=== PATIENT | male | born 1955 | race Caucasian/White ===

== ENCOUNTER 2017-05-18 17:32 | Inpatient (IN) | payer MEDICAID ==
[~2017-05-18] VITALS: Ht 172.7 cm; Wt 88.0 kg
[2017-05-18] MEDS ORDERED: Famotidine 20 MG/ 2ML VIAL IVP ONE (17:45)
[2017-05-18] MEDS ORDERED: Morphine Sulfate 4mg/ml Inj IVP ONE (17:45)
--- NOTE | 2017-05-18 17:57 | Emergency Room Report ---
History of Present Illness General Chief Complaint: Abdominal Pain Source: Patient Present Illness HPI The patient is a 61-year-old male who presented after increased abdominal pain. Patient had sudden onset of abdominal pain worse on the upper abdomen. This had the sharp component as well as intermittent cramping. Patient had not been vomiting. He denied any fever. He had not been taking any alcohol recently. He reported having flatus yesterday. The per EMS he was having some hematemesis. Allergies: Coded Allergies: No Known Allergies (Unverified , 05/18/17) Patient History Past Medical History: see triage record Reviewed Nursing Documentation: PMH: Agreed, PSxH: Agreed Nursing Documentation-PMH Past Medical History: No Stated History Review of Systems All Other Systems: negative except mentioned in HPI Physical Exam Vital Signs Date Time Temp Pulse Resp B/P Pulse Ox O2 Delivery O2 Flow Rate FiO2 05/18/17 17:33 97.9 86 16 150/90 98 Room Air Sp02 EP Interpretation: reviewed, normal General Appearance: normal inspection, well appearing, no apparent distress, alert, GCS 15 Head: atraumatic ENT: normal ENT inspection, hearing grossly normal, normal voice Neck: normal inspection, full range of motion, supple, no bony tend Respiratory: normal inspection, lungs clear, normal breath sounds, no respiratory distress, no retraction, no wheezing Cardiovascular #1: regular rate, rhythm, no edema Gastrointestinal: non tender, soft, no guarding, no hernia, tenderness - epigastric Genitourinary: no CVA tenderness Musculoskeletal: normal inspection, back normal, normal range of motion Neurologic: normal inspection, alert, responsive, speech normal Psychiatric: normal inspection, judgement/insight normal, mood/affect normal Skin: normal inspection, normal color, no rash Medical Decision Making Diagnostic Impression: Primary Impression: Abdominal pain Additional Impression: Bowel obstruction ER Course Patient presented for abdominal pain. Differential diagnoses included ischemic bowel, appendicitis, perforated viscus, abdominal aortic aneurysm, inferior myocardial infarction, viral gastroenteritis Because of complexity of patient's case laboratory testing and imaging studies were ordered. Laboratory testing was ordered. Patient was given IV antibiotics as well as IV fluids and pain medications. Dr. Betancur was contacted for surgical consult due to acute abdominal pain. NG tube was placed. Patient was given I IV acid blockers.As per surgical consult it pain medication was subsequently held due to the effect on GI function. Dr. Rico Ramos was contacted for inpatient management. Labs Test 05/18/17 18:00 White Blood Count 16.3 K/UL (4.8-10.8) Red Blood Count 5.55 M/UL (4.70-6.10) Hemoglobin 17.3 G/DL (14.2-18.0) Hematocrit 51.0 % (42.0-52.0) Mean Corpuscular Volume 92 FL (80-99) Mean Corpuscular Hemoglobin 31.2 PG (27.0-31.0) Mean Corpuscular Hemoglobin Concent 33.9 G/DL (32.0-36.0) Red Cell Distribution Width 12.4 % (11.6-14.8) Platelet Count 410 K/UL (150-450) Mean Platelet Volume 6.4 FL (6.5-10.1) Neutrophils (%) (Auto) 85.6 % (45.0-75.0) Lymphocytes (%) (Auto) 8.2 % (20.0-45.0) Monocytes (%) (Auto) 5.7 % (1.0-10.0) Eosinophils (%) (Auto) 0.1 % (0.0-3.0) Basophils (%) (Auto) 0.4 % (0.0-2.0) Prothrombin Time 11.6 SEC (9.30-11.50) Prothromb Time International Ratio 1.1 (0.9-1.1) Activated Partial Thromboplast Time 40 SEC (23-33) Sodium Level 135 mEQ/L (135-145) Potassium Level 3.9 mEQ/L (3.4-4.9) Chloride Level 86 mEQ/L (98-107) Carbon Dioxide Level 23 mEQ/L (20-30) Anion Gap 26 (5-15) Blood Urea Nitrogen 31 mg/dL (7-23) Creatinine 2.5 mg/dL (0.7-1.2) Estimat Glomerular Filtration Rate 26.5 mL/min (>60) Glucose Level 172 mg/dL (74-106) Calcium Level 9.9 mg/dL (8.6-10.2) Total Bilirubin 0.9 mg/dL (0.0-1.2) Aspartate Amino Transf (AST/SGOT) 13 U/L (5-40) Alanine Aminotransferase (ALT/SGPT) 8 U/L (3-41) Alkaline Phosphatase 107 U/L (40-129) Troponin I < 0.30 ng/mL (<=0.30) Total Protein 7.9 g/dL (6.6-8.7) Albumin 3.7 g/dL (3.5-5.2) Globulin 4.2 g/dL Albumin/Globulin Ratio 0.8 (1.0-2.7) Lipase 9 U/L (< 60) EKG Diagnostic Results Rate: normal - 93 Rhythm: NSR ST Segments: no acute changes Rhythm Strip Diag. Results EP Interpretation: yes Rhythm: NSR, no PVC's, no ectopy Last Vital Signs Date Time Temp Pulse Resp B/P Pulse Ox O2 Delivery O2 Flow Rate FiO2 05/18/17 17:33 97.9 86 16 150/90 98 Room Air Status: unchanged Disposition: ADMITTED INPATIENT Condition: Serious Toan Dinero May 18, 2017 17:57
[2017-05-18 18:10] VITALS: BP 150/90
[2017-05-18 18:36] LABS: MEAN CORPUSCULAR HEMOGLOBIN 31.2 PG (27.0-31.0); MEAN CORPUSCULAR HGB CONC 33.9 G/DL (32.0-36.0); MEAN CORPUSCULAR VOLUME 92 FL (80-99); MEAN PLATELET VOLUME 6.4 FL (6.5-10.1); PLATELET COUNT 410 K/UL (150-450); RED BLOOD COUNT 5.55 M/UL (4.70-6.10); RED CELL DISTRIBUTION WIDTH 12.4 % (11.6-14.8); WHITE BLOOD COUNT 16.3 K/UL (4.8-10.8)
[2017-05-18 18:37] LABS: BASOPHILS % (AUTO) 0.4 % (0.0-2.0); EOSINOPHILS % (AUTO) 0.1 % (0.0-3.0); LYMPHOCYTES % (AUTO) 8.2 % (20.0-45.0); MONOCYTES % (AUTO) 5.7 % (1.0-10.0); NEUTROPHILS % (AUTO) 85.6 % (45.0-75.0)
[2017-05-18 18:46] LABS: INR 1.1 (0.9-1.1); PROTHROMBIN TIME 11.6 SEC (9.30-11.50)
[2017-05-18 18:52] LABS: TROPONIN I < 0.30 ng/mL (<=0.30)
[2017-05-18 19:11] LABS: ALBUMIN/GLOBULIN RATIO 0.8 (1.0-2.7); CALCIUM 9.9 mg/dL (8.6-10.2); CREATININE 2.5 mg/dL (0.7-1.2); GLOMERULAR FILTRATION RATE 26.5 mL/min (>60); POTASSIUM 3.9 mEQ/L (3.4-4.9); TOTAL PROTEIN 7.9 g/dL (6.6-8.7)
[2017-05-18 20:00] VITALS: BP 158/94
[2017-05-18] MEDS ORDERED: Ampicillin/Sulbactam Sod 3 GM in NS 110 ML IVPB ONE (20:30)
[2017-05-18] MEDS ORDERED: Unasyn 3gm Inj ONE (20:47)
[2017-05-18 23:00] VITALS: BP 165/92
[2017-05-18] MEDS ORDERED: NKM (23:10)
--- NOTE | 2017-05-18 23:15 | Consultation ---
DATE OF CONSULTATION: 05/18/2017 CONSULTING PHYSICIAN: Sean Betancur M.D. REQUESTING PHYSICIAN: ER physician. REASON FOR CONSULTATION: Abdominal pain. HISTORY OF PRESENT ILLNESS: This is a 61-year-old male who presented to emergency room complaining of lot of abdominal pain since 05/15/2017. He states the pain is pain is at the lower abdomen and apparently he had crampy pain. He stated that since 05/16/2017 he had been vomiting. He had diarrhea on 05/16/2017 after that he started abdominal pain but since then he has been passing gas, flatus. He claims that passing flatus causes pain. He denies any previous history of similar pain. He denies any fever, cough, dysuria, or frequency. PAST MEDICAL HISTORY: He denies allergies, asthma, diabetes, hypertension, cardiac and renal diseases. PAST SURGICAL HISTORY: Include the left retinal detachment. MEDICATIONS: None. SOCIAL HISTORY: The patient is a 61-year-old male, who is single without children. He claims that he quit smoking five months ago and he quit drinking about 6 to 7 years ago. He denies any drugs. REVIEW OF SYSTEMS: Noncontributory. PHYSICAL EXAMINATION: GENERAL: The patient appeared to be a well-developed, well-nourished, 61-year-old male, lying on the gurney, complaining of abdominal pain. He claimed that the movement makes the pain worse. HEENT: Head is normocephalic and atraumatic. Eyes, pupils are equal, round, and reactive to light. Mouth was clear. NECK: There is no palpable thyromegaly or adenopathy. CHEST: Clear to auscultation and percussion. HEART: No gallop or murmur. S1 and S2 are within normal limits. ABDOMEN: Mildly distended, but soft. He has tenderness at the lower abdomen. This patient had periumbilical hernia. There is no rigidity. There is no palpable organomegaly. Bowel sounds are present. GENITOURINARY: Genital is normal. He is free of hernia. EXTREMITIES: Within normal limits. LABORATORY AND DIAGNOSTIC DATA: CBC has shown a leukocytosis with a left shift. Chemistry has shown elevated creatinine and which is about 2.4 with a BUN of 30. CAT scan of the abdomen has shown a dilated loop of small bowel as well as dilated stomach and the radiologist felt presence of small bowel obstruction. ASSESSMENT: Rule out small bowel obstruction. PLAN: The patient has been complaining of pain and vomiting but he has been passing gas. So even if he has bowel obstruction is not complete, it has to be partial, of course it has to be considered that the patient did not have any previous surgery so chances of obstruction due to the adhesion is very small. In that case, if there is any bowel obstruction it has to be either due to the volvulus, internal hernia, or ischemia. I am not sure about the diagnosis and the etiology so the patient requires to be observed. He needs to be NPO, NG tube suctioning, intravenous fluids, and I took the liberty of ordering a Gastrografin followthrough, small bowel followthrough to be performed in the morning. Sean Betancur M.D. DR: Maria Eugenia JOB#: [id number] CC:
[2017-05-19] VITALS (11 sets, daily range): BP systolic 134–165; BP diastolic 64–150
[2017-05-19] MEDS: NS w/KCl 20mEq 1,000 ML IV SCH ×3 (02:26→18:00)
[2017-05-19] MEDS ORDERED: Zosyn 3.375gm inj ONE ×3 (05:33→22:57)
[2017-05-19] MEDS: Piperacillin/Tazobactam 3.375 GM in NS 110 ML IVPB SCH ×3 (05:47→23:15)
[2017-05-19 07:47] LABS: BASOPHILS % (AUTO) 0.9 % (0.0-2.0); EOSINOPHILS % (AUTO) 0.8 % (0.0-3.0); LYMPHOCYTES % (AUTO) 15.5 % (20.0-45.0); MEAN CORPUSCULAR HEMOGLOBIN 30.9 PG (27.0-31.0); MEAN CORPUSCULAR HGB CONC 33.4 G/DL (32.0-36.0); MEAN CORPUSCULAR VOLUME 92 FL (80-99); MEAN PLATELET VOLUME 7.1 FL (6.5-10.1); MONOCYTES % (AUTO) 7.9 % (1.0-10.0); PLATELET COUNT 411 K/UL (150-450); RED BLOOD COUNT 5.15 M/UL (4.70-6.10); RED CELL DISTRIBUTION WIDTH 12.2 % (11.6-14.8); WHITE BLOOD COUNT 6.2 K/UL (4.8-10.8)
[2017-05-19 08:06] LABS: CALCIUM 8.7 mg/dL (8.6-10.2); CREATININE 2.9 mg/dL (0.7-1.2); GLOMERULAR FILTRATION RATE 22.3 mL/min (>60); POTASSIUM 3.9 mEQ/L (3.4-4.9)
[2017-05-19 08:11] LABS: BILIRUBIN,DIRECT 0.2 mg/dL (0.1-0.3); THYROID STIMULATING HORMONE 0.789 uIU/mL (0.300-4.500); TOTAL PROTEIN 6.2 g/dL (6.6-8.7)
[2017-05-19] MEDS ORDERED: Famotidine 20 MG/ 2ML VIAL IVP SCH (09:00)
[2017-05-19] MEDS ORDERED: Midazolam 2mg/2ml Inj ONE ×2 (09:00→19:00)
--- NOTE | 2017-05-19 10:31 | Diagnostic Imaging Report ---
Indication: Abdominal pain Technique: Continuous helical transaxial imaging of the abdomen and pelvis was obtained from the lung bases to the pubic symphysis. No intravenous contrast was administered. Coronal 2-D reformats were also obtained. Total Dose length Product (DLP): [address] Dose Index Volume (CTDIvol): 17 mGy Comparison: none Findings: There is moderate distention of proximal small bowel and the stomach. The precise transition is not identified but suspected to be within the lower abdomen upper pelvis midline in location. There are multiple nondistended loops of small bowel in the pelvis including the terminal ileum. Findings consistent with small bowel obstruction. Evaluation limited by the absence of oral and intravenous contrast. There is no pneumatosis or free air identified. There is a low-density 2 cm focus in the posterior right lobe of the liver. There is a low-density 2.5 x 3.5 CM left adrenal mass. Tiny nonobstructive stones noted within the left kidney. There is no hydronephrosis. Arterial vascular calcifications are noted. Diverticula demonstrated in the colon. Small amount of ascites noted in the pelvis. There is thickening of the urinary bladder wall. The appendix is normal. Gallbladder sludge suspected. Mild left basal atelectasis is present. There is narrowing of intervertebral discs and accompanying endplate osteophyte formation. Hypertrophied facet joints also demonstrated.. Scoliosis also present with the lumbar spine convex to the left. Impression: Evaluation limited by the absence of intravenous and oral contrast. Evidence of a small bowel obstruction likely in the distal jejunum or proximal ileum. Transition is suspected within the midline below the umbilicus. Mild ascites. Trace pericardial effusion Hiatal hernia Nonobstructive stones in the left kidney. Atherosclerotic vascular disease Gallbladder sludge versus stones. Low-density lesion in the liver nonspecific. 2.5 x 3.5 cm left adrenal gland mass. Consider MR for further evaluation. Spondylosis. Thickening of the urinary bladder wall. Cystitis suspected. Please correlate clinically. Diverticulosis of the colon. Normal appendix Dr. Dee has communicated the preliminary results to the Emergency Department. There are no significant discrepancies. The CT scanner at [facility] is accredited by the [employer] and the scans are performed using dose optimization techniques as appropriate to a performed exam including Automatic Exposure control.
--- NOTE | 2017-05-19 11:19 | Diagnostic Imaging Report ---
Indication: Dyspnea Comparison: None A single view chest radiograph was obtained. Findings: Cardiomediastinal appearance is within normal limits for age. Pulmonary vascularity is appropriate. The diaphragmatic contour is smooth and costophrenic angles are sharp. No pleural effusions are identified. The bones are osteopenic. There is a scoliosis of the thoracic spine. Impression: No acute findings
[2017-05-19 12:27] LABS: APPEARANCE,URINE CLEAR; KETONES,URINE 1+ (NEGATIVE); LEUKOCYTE ESTERASE ,URINE 1+ (NEGATIVE); NITRITE,URINE NEGATIVE (NEGATIVE); PH,URINE 5 (4.5-8.0); PROTEIN,URINE 2+ (NEGATIVE); UROBILINOGEN,URINE NORMAL MG/DL (0.0-1.0)
[2017-05-19 12:34] LABS: AMORPHOUS SEDIMENT,UR FEW /LPF; BACTERIA,URINE FEW /HPF; SQUAMOUS EPITHELIAL CELL,UR OCCASIONAL /LPF (NONE/OCC)
--- NOTE | 2017-05-19 13:33 | General Surgery Progress Note ---
General Surgery-Progress Note Subjective Symptoms: pain same Objective Last 24 Hour Vital Signs Date Time Temp Pulse Resp B/P Pulse Ox O2 Delivery O2 Flow Rate FiO2 05/19/17 08:00 97.7 95 20 136/84 96 Room Air 05/19/17 04:05 81 163/65 05/19/17 04:00 97.3 98 24 165/150 97 Room Air 05/19/17 04:00 96 05/19/17 02:30 98.1 81 163/65 05/18/17 23:00 97.3 94 24 165/92 100 Room Air 05/18/17 20:00 89 19 158/94 99 Room Air 05/18/17 18:40 97.8 05/18/17 18:10 97.9 77 16 150/90 98 Room Air 05/18/17 17:33 97.9 86 16 150/90 98 Room Air I&O Intake and Output 05/18/17 05/19/17 19:00 07:00 Intake Total 714.5 ml Output Total 620 ml Balance 94.5 ml Intake IV Total 714.5 ml Output Gastric Drainage Total 620 ml # Voids 1 Respiratory: clear Abdomen: soft, distended, tenderness, present bowel sounds Extremities: no tenderness Laboratory Tests Test 05/18/17 18:00 05/19/17 07:15 05/19/17 09:20 White Blood Count 16.3 K/UL (4.8-10.8) H 6.2 K/UL (4.8-10.8) # Red Blood Count 5.55 M/UL (4.70-6.10) 5.15 M/UL (4.70-6.10) Hemoglobin 17.3 G/DL (14.2-18.0) 15.9 G/DL (14.2-18.0) Hematocrit 51.0 % (42.0-52.0) 47.6 % (42.0-52.0) Mean Corpuscular Volume 92 FL (80-99) 92 FL (80-99) Mean Corpuscular Hemoglobin 31.2 PG (27.0-31.0) H 30.9 PG (27.0-31.0) Mean Corpuscular Hemoglobin Concent 33.9 G/DL (32.0-36.0) 33.4 G/DL (32.0-36.0) Red Cell Distribution Width 12.4 % (11.6-14.8) 12.2 % (11.6-14.8) Platelet Count 410 K/UL (150-450) 411 K/UL (150-450) Mean Platelet Volume 6.4 FL (6.5-10.1) L 7.1 FL (6.5-10.1) Neutrophils (%) (Auto) 85.6 % (45.0-75.0) H 75.0 % (45.0-75.0) Lymphocytes (%) (Auto) 8.2 % (20.0-45.0) L 15.5 % (20.0-45.0) L Monocytes (%) (Auto) 5.7 % (1.0-10.0) 7.9 % (1.0-10.0) Eosinophils (%) (Auto) 0.1 % (0.0-3.0) 0.8 % (0.0-3.0) Basophils (%) (Auto) 0.4 % (0.0-2.0) 0.9 % (0.0-2.0) Prothrombin Time 11.6 SEC (9.30-11.50) H Prothromb Time International Ratio 1.1 (0.9-1.1) Activated Partial Thromboplast Time 40 SEC (23-33) H Sodium Level 135 mEQ/L (135-145) 133 mEQ/L (135-145) L Potassium Level 3.9 mEQ/L (3.4-4.9) 3.9 mEQ/L (3.4-4.9) Chloride Level 86 mEQ/L (98-107) L 91 mEQ/L (98-107) L Carbon Dioxide Level 23 mEQ/L (20-30) 25 mEQ/L (20-30) Anion Gap 26 (5-15) H 17 (5-15) H Blood Urea Nitrogen 31 mg/dL (7-23) H 40 mg/dL (7-23) H Creatinine 2.5 mg/dL (0.7-1.2) H 2.9 mg/dL (0.7-1.2) H Estimat Glomerular Filtration Rate 26.5 mL/min (>60) 22.3 mL/min (>60) Glucose Level 172 mg/dL (74-106) H 134 mg/dL (74-106) H Calcium Level 9.9 mg/dL (8.6-10.2) 8.7 mg/dL (8.6-10.2) Total Bilirubin 0.9 mg/dL (0.0-1.2) 0.7 mg/dL (0.0-1.2) Aspartate Amino Transf (AST/SGOT) 13 U/L (5-40) 11 U/L (5-40) Alanine Aminotransferase (ALT/SGPT) 8 U/L (3-41) 7 U/L (3-41) Alkaline Phosphatase 107 U/L (40-129) 85 U/L (40-129) Troponin I < 0.30 ng/mL (<=0.30) Total Protein 7.9 g/dL (6.6-8.7) 6.2 g/dL (6.6-8.7) L Albumin 3.7 g/dL (3.5-5.2) 3.4 g/dL (3.5-5.2) L Globulin 4.2 g/dL Albumin/Globulin Ratio 0.8 (1.0-2.7) L Lipase 9 U/L (< 60) Direct Bilirubin 0.2 mg/dL (0.1-0.3) Thyroid Stimulating Hormone (TSH) 0.789 uIU/mL (0.300-4.500) Urine Color Yellow Urine Appearance Clear Urine pH 5 (4.5-8.0) Urine Specific [place] 1.015 (1.005-1.035) Urine Protein 2+ (NEGATIVE) H Urine Glucose (UA) Negative (NEGATIVE) Urine Ketones 1+ (NEGATIVE) H Urine Occult Blood 1+ (NEGATIVE) H Urine Nitrite Negative (NEGATIVE) Urine Bilirubin Negative (NEGATIVE) Urine Urobilinogen Normal MG/DL (0.0-1.0) Urine Leukocyte Esterase 1+ (NEGATIVE) H Urine RBC 2-4 /HPF (0 - 0) H Urine WBC 5-10 /HPF (0 - 0) H Urine Squamous Epithelial Cells Occasional /LPF Urine Amorphous Sediment Few /LPF (NONE) H Urine Bacteria Few /HPF (NONE) Assessment Additional Comments R/O SBO Plan Additional Comments The patient is very tender gastrografin is not progressing. If there is no improvement in the next few hours he will undergo EX Lap. Risks & benefits were explained to patient PARKERCYNTHIA BEACHRAVI May 19, 2017 13:33
--- NOTE | 2017-05-19 13:43 | Anethesia Preoperative Eval ---
Anesthesia Pre-op PMH/ROS General Date of Evaluation: May 19, 2017 Time of Evaluation: 13:39 Anesthesiologist: Erendira ASA Score: ASA 2 Mallampati Score Class I : Soft palate, uvula, fauces, pillars visible Class II: Soft palate, uvula, fauces visible Class III: Soft palate, base of uvula visible Class IV: Only hard plate visible Mallampati Classification: Class III Surgeon: Pipe Diagnosis: Small bowel obstruction Surgical Procedure: Ex laparotomy Anesthesia History: none Social History: smoking - h/o Family History: no anesthesia problems Allergies: Coded Allergies: No Known Allergies (Unverified , 05/18/17) Medications: see eMAR Past Medical History Cardiovascular: Reports: HTN, Denies: CAD, AL, arrhythmia, other, valve dz Pulmonary: Denies: COPD, GUS, asthma, other Gastrointestinal/Genitourinary: Reports: GERD, Denies: CRI, ESRD, other Neurologic/Psychiatric: Reports: depression/anxiety, Denies: CVA, TIA, dementia, other Endocrine: Denies: DM, hypothyroidism, other, steroids HEENT: Denies: [place] (L), [place] (R), cataract (L), cataract (R), glaucoma, other Hematology/Immune: Denies: DVT, anemia, bleeding disorder, other Musculoskeletal/Integumentary: Reports: DJD, Denies: DDD, OA, RA, edema, other Other: other - malnourished PMH Narrative: admitted for acute abdominal pain PSxH Narrative: see chart Anesthesia Pre-op Phys. Exam Physician Exam Last Vital Signs Date Time Temp Pulse Resp B/P Pulse Ox O2 Delivery O2 Flow Rate FiO2 05/19/17 08:00 97.7 95 20 136/84 96 Room Air Constitutional: other - slightly obtunded Neurologic: other - unable to obtaine Cardiovascular: RRR, no M/R/G Respiratory: CTA Gastrointestinal: other - slightly distended tender on palpation Airway Exam Mallampati Score: Class III MO: limited Neck: stiff ROM: limited Teeth: missing, broken Dentures: no lower, no upper Anesthesia Pre-op A/P Labs Hematology Test 05/18/17 18:00 05/19/17 07:15 White Blood Count 16.3 K/UL (4.8-10.8) H 6.2 K/UL (4.8-10.8) # Red Blood Count 5.55 M/UL (4.70-6.10) 5.15 M/UL (4.70-6.10) Hemoglobin 17.3 G/DL (14.2-18.0) 15.9 G/DL (14.2-18.0) Hematocrit 51.0 % (42.0-52.0) 47.6 % (42.0-52.0) Mean Corpuscular Volume 92 FL (80-99) 92 FL (80-99) Mean Corpuscular Hemoglobin 31.2 PG (27.0-31.0) H 30.9 PG (27.0-31.0) Mean Corpuscular Hemoglobin Concent 33.9 G/DL (32.0-36.0) 33.4 G/DL (32.0-36.0) Red Cell Distribution Width 12.4 % (11.6-14.8) 12.2 % (11.6-14.8) Platelet Count 410 K/UL (150-450) 411 K/UL (150-450) Mean Platelet Volume 6.4 FL (6.5-10.1) L 7.1 FL (6.5-10.1) Neutrophils (%) (Auto) 85.6 % (45.0-75.0) H 75.0 % (45.0-75.0) Lymphocytes (%) (Auto) 8.2 % (20.0-45.0) L 15.5 % (20.0-45.0) L Monocytes (%) (Auto) 5.7 % (1.0-10.0) 7.9 % (1.0-10.0) Eosinophils (%) (Auto) 0.1 % (0.0-3.0) 0.8 % (0.0-3.0) Basophils (%) (Auto) 0.4 % (0.0-2.0) 0.9 % (0.0-2.0) Coagulation Test 05/18/17 18:00 Prothrombin Time 11.6 SEC (9.30-11.50) H Prothromb Time International Ratio 1.1 (0.9-1.1) Activated Partial Thromboplast Time 40 SEC (23-33) H Chemistry Test 05/18/17 18:00 05/19/17 07:15 Sodium Level 135 mEQ/L (135-145) 133 mEQ/L (135-145) L Potassium Level 3.9 mEQ/L (3.4-4.9) 3.9 mEQ/L (3.4-4.9) Chloride Level 86 mEQ/L (98-107) L 91 mEQ/L (98-107) L Carbon Dioxide Level 23 mEQ/L (20-30) 25 mEQ/L (20-30) Anion Gap 26 (5-15) H 17 (5-15) H Blood Urea Nitrogen 31 mg/dL (7-23) H 40 mg/dL (7-23) H Creatinine 2.5 mg/dL (0.7-1.2) H 2.9 mg/dL (0.7-1.2) H Estimat Glomerular Filtration Rate 26.5 mL/min (>60) 22.3 mL/min (>60) Glucose Level 172 mg/dL (74-106) H 134 mg/dL (74-106) H Calcium Level 9.9 mg/dL (8.6-10.2) 8.7 mg/dL (8.6-10.2) Total Bilirubin 0.9 mg/dL (0.0-1.2) 0.7 mg/dL (0.0-1.2) Aspartate Amino Transf (AST/SGOT) 13 U/L (5-40) 11 U/L (5-40) Alanine Aminotransferase (ALT/SGPT) 8 U/L (3-41) 7 U/L (3-41) Alkaline Phosphatase 107 U/L (40-129) 85 U/L (40-129) Troponin I < 0.30 ng/mL (<=0.30) Total Protein 7.9 g/dL (6.6-8.7) 6.2 g/dL (6.6-8.7) L Albumin 3.7 g/dL (3.5-5.2) 3.4 g/dL (3.5-5.2) L Globulin 4.2 g/dL Albumin/Globulin Ratio 0.8 (1.0-2.7) L Lipase 9 U/L (< 60) Direct Bilirubin 0.2 mg/dL (0.1-0.3) Thyroid Stimulating Hormone (TSH) 0.789 uIU/mL (0.300-4.500) Studies Pre-op Studies: EKG - NSR Risk Assessment & Plan Assessment: ASA 2 E Plan: GA with ETT Pre-Antibiotics Drug: as scheduled AYALA SOTELO M.D. May 19, 2017 13:43
--- NOTE | 2017-05-19 15:17 | Diagnostic Imaging Report ---
Indication: Small bowel obstruction. Abdominal pain Comparison: CT 05/18/17 Findings: Oral Gastrografin water-soluble contrast was given and small bowel series was performed. Stomach is distended. Multiple proximal small bowel loops are distended with contrast. At 2 hours there is no further propagation of contrast material beyond the dilated loops in the mid abdomen. At 4 hours there is no change. Impression: High-grade small bowel obstruction involving mid jejunum.
--- NOTE | 2017-05-19 16:30 | History and Physical Report ---
DATE OF ADMISSION: 05/18/2017 REASON FOR ADMISSION: Partial small bowel obstruction and renal failure. HISTORY OF PRESENT ILLNESS: This is a 61-year-old white male has no prior history of abdominal surgery or illness. He developed sudden onset abdominal pain with cramping and anorexia for the last 2 to 3 days. He has had very poor urine output and states he has not been able to the eat. He did pass some gas. He has not had fevers or chills or other constitutional symptoms. PAST MEDICAL HISTORY: Otherwise unremarkable. ALLERGIES: None. SOCIAL HISTORY: Denies smoking, alcohol, or substance abuse. FAMILY HISTORY: Noncontributory. PHYSICAL EXAMINATION: VITAL SIGNS: Afebrile, blood pressure 150/90, pulse 86, respiratory rate 16. HEENT: Conjunctivae are pink. Sclerae are anicteric. Oropharynx clear. Mucous membranes dry. NECK: Supple. Jugular venous pressure normal. LUNGS: Clear. CARDIAC: Regular rhythm and rate. Normal S1, S2. No murmur. ABDOMEN: Slightly distended, but soft. No guarding. There is mid epigastric tenderness. No Raymundo sign. EXTREMITIES: Good pulses. No edema. NEUROLOGIC: Nonfocal. LABORATORY AND DIAGNOSTIC DATA: White count 16, hemoglobin 17. INR normal. Sodium 135, potassium 3.9, chloride 86, and bicarbonate 23, BUN 31, and creatinine 2.5. Albumin 3.7. EKG sinus rhythm with no abnormalities. LABORATORY DATA: CAT scan of the abdomen and pelvis is notable for small bowel obstruction in the distal jejunum or proximal ileum, mild ascites, nonobstructive left kidney stone, hiatal hernia, gallbladder sludge versus stones, left adrenal mass, cystitis, diverticulosis. IMPRESSION: 1. Partial small bowel obstruction, 2. Possible cystitis. 3. Leukocytosis. 4. Sepsis. 5. Acute renal failure due to acute tubular necrosis. 6. Hypovolemia. 7. Dehydration. 8. Hyperglycemia. 9. Hypochloremia. PLAN: 1. NPO. 2. Surgical evaluation. 3. IV fluid hydration. 4. Empiric antibiotics. 5. Further imaging studies to assess for source of obstruction will follow. 6. Renal ultrasound will be considered. 7. Deep venous thrombosis prophylaxis. Rico Ramos M.D. DR: Rick JOB#: [id number] CC:
[2017-05-19] MEDS ORDERED: Propofol 10mg/ml 20ml IV ONE (19:00)
[2017-05-19] MEDS ORDERED: Lidocaine 1% MPF 10mg/ml 5ml ONE (19:00)
[2017-05-19] MEDS ORDERED: Zemuron 50mg/5ml Inj IV ONE (19:00)
[2017-05-19] MEDS ORDERED: Glycopyrrolate 0.2mg/ml 1ml Vial ONE (19:00)
[2017-05-19] MEDS ORDERED: Dexamethasone 4mg/ml vial ONE (19:00)
[2017-05-19] MEDS ORDERED: fentaNYL 100 mcg/2 mL IV ONE (19:00)
[2017-05-19] MEDS ORDERED: Neostigmine 1mg/ml 10ml Inj ONE (19:00)
[2017-05-19] MEDS ORDERED: Metoclopramide 10mg/2ml Inj ONE (19:00)
[2017-05-19] MEDS ORDERED: LR 1000ml ONE (19:00)
--- NOTE | 2017-05-19 19:04 | Pre-Procedure Note/Attestation ---
Pre-Procedure Note/Attestation Complete Prior to Procedure Planned Procedure: not applicable Procedure Narrative: Exploratory Laparotomy Indications for Procedure Pre-Operative Diagnosis: Small Bowel obstruction Attestation I attest that I discussed the nature of the procedure; its benefits; risks and complications; and alternatives (and the risks and benefits of such alternatives ), prior to the procedure, with the patient (or the patient's legal traveling sales representative). I attest that, if there was a reasonable possibility of needing a blood transfusion, the patient (or the patient's legal traveling sales representative) was given the [facility] standardized written summary, pursuant to the [place] [place] Blood Safety Act ([place] Health and Safety Code # 1645, as amended). I attest that I re-evaluated the patient just prior to the surgery and that there has been no change in the patient's H&P, except as documented below: FRED MILES May 19, 2017 19:04
[2017-05-19] MEDS ORDERED: LR 1000ml 1,000 ML IVLG SCH (19:40)
--- NOTE | 2017-05-19 19:42 | Immediate Post-Op Evaluation ---
Immediate Post-Op Evalulation Immediate Post-Op Evalulation Procedure: Exploratory laparotomy Date of Evaluation: May 19, 2017 Time of Evaluation: 22:26 IV Fluids: 2.6L Blood Products: 0 Estimated Blood Loss: 150 Urinary Output: 300 Blood Pressure Systolic: 151 Blood Pressure Diastolic: 77 Pulse Rate: 79 Respiratory Rate: 16 O2 Sat by Pulse Oximetry: 99 Temperature (Fahrenheit): 97.7 Pain Score (1-10): 0 Nausea: No Vomiting: No Complications 0 Patient Status: awake, reacts, patent, none Hydration Status: adequate Drug: Zosyn on floor Given Within 1 Hr of Incision: Yes KARL GALAN M.D. May 19, 2017 19:42
[2017-05-19] MEDS ORDERED: Metoclopramide 10mg/2ml Inj IVP PRN ×2 (19:45→22:00)
[2017-05-19] MEDS ORDERED: LORazepam Inj 2mg/ml 1ml IV PRN (19:45)
[2017-05-19] MEDS ORDERED: Hydromorphone 0.5mg/0.5ml inj IVP PRN ×2 (19:45→22:00)
[2017-05-19] MEDS ORDERED: Midazolam 2mg/2ml Inj IVP PRN (19:45)
[2017-05-19] MEDS ORDERED: DiphenhydrAMINE 50mg/ml Inj IVP PRN (19:45)
[2017-05-19] MEDS ORDERED: fentaNYL 100 mcg/2 mL IV PRN (19:45)
[2017-05-19] MEDS ORDERED: NS Irrig 1000ml IRRIG ONE (19:54)
[2017-05-19] MEDS ORDERED: Bacitracin Irrig 1000ml IRRIG ONE (19:55)
[2017-05-19] MEDS ORDERED: Bacitracin 50000 Units Vial IRRIG ONE ×2 (20:28→20:37)
[2017-05-19] MEDS ORDERED: Heparin 5000 units/ml inj SUBQ SCH (21:00)
--- NOTE | 2017-05-19 21:57 | Brief Operative Note ---
Immediate Post Operative Note Operative Note Pre-op Diagnosis: Small Bowel obstruction Post-op Diagnosis: perforated sigmoid colon with intra-abdominal abscess & small bowel obstruction Surgeon: MD Roshni Director Television News: none Anesthesiologist: Dr. Ramírez Anesthesia: general Specimen: yes Complications: none Condition: stable Estimated Blood Loss: volume - 50ml Drains: MIRANDA Implant(s) used?: No FRED MILES May 19, 2017 21:57
[2017-05-19] MEDS ORDERED: HYDROmorphone 1mg/ml Carpuject IVP PRN (22:00)
[2017-05-19] MEDS ORDERED: Piperacillin/Tazobactam 3.375 GM in D5W 110 ML IVPB SCH (22:00)
[2017-05-19] MEDS ORDERED: Acetaminophen 650 MG SUPP RECTAL PRN (22:00)
[2017-05-19] MEDS ORDERED: D5 1/2NS w/KCl 20mEq 1,000 ML IV SCH ×2 (23:00)
[2017-05-20] VITALS (23 sets, daily range): BP systolic 95–141; BP diastolic 57–85
[2017-05-20 00:06] LABS: ABG BASE EXCESS -5.5; ABG PCO2 47.4 mmHg (35.0-45.0)
[2017-05-20 00:07] LABS: ABG ALLEN TEST POSITIVE
[2017-05-20] MEDS: NS w/KCl 20mEq 1,000 ML IV SCH ×2 (00:26→07:26)
--- NOTE | 2017-05-20 01:46 | Operative Note - Dictated ---
DATE OF OPERATION: 05/19/2017 PREOPERATIVE DIAGNOSIS: Bowel obstruction and acute abdomen. POSTOPERATIVE DIAGNOSIS: Perforated sigmoid colon with intra-abdominal abscess and small bowel obstruction. OPERATION: 1. Exploratory laparotomy. 2. Resection of small bowel with primary anastomosis. 3. Drainage of intraabdominal abscess. 4. Colon resection and colostomy. COMPLICATIONS: None. SURGEON: Sean Betancur M.D. CURRICULUM AND INSTRUCTION DIRECTOR: None. ANESTHESIA: General with endotracheal tube. ANESTHESIOLOGIST: Dr. Ramírez. INDICATION: This is a 61-year-old male, who presented to emergency room complaining of acute abdominal pain and vomiting for about two to three days. The pain apparently was periumbilical and lower abdomen and the patient stated that he had multiple episodes of vomiting. He had a normal bowel movement three days prior to the admission and he claimed that since then he has been passing gas. He denied any fever. Physical examination showed distended abdomen with tenderness and guarding at the lower abdomen, which seems to be more pronounced at right lower quadrant. CBC showed a WBC of 17,000 with a left shift, but this morning the WBC was 7000 with almost normal differential. A CAT scan of the abdomen, which was performed last night was interpreted as a small bowel obstruction. Although, I had a long discussion with the radiologist and it seemed that there was some inflammatory changes at the lower abdomen, a Gastrografin small bowel followthrough was obtained, which showed a complete small bowel obstruction. As the patient had a complete obstruction beside he had tenderness and guarding all over the abdomen, the decision was made for exploratory laparotomy. DESCRIPTION OF PROCEDURE: The patient was placed supine on the operating table and after general anesthesia with endotracheal tube, the abdomen was properly prepped and draped. A physical examination under general anesthesia was performed, which showed a mass at the midline below the umbilicus. The midline incision was given from above the umbilicus to below the umbilicus and was carried sharply through subcutaneous tissue, fascia, and peritoneum. The intraperitoneal cavity was entered and it was noticed that the patient had an inflammatory mass with a severe adhesion to the anterior abdominal wall. This mass consisted of a small bowel and apparently colon. A blunt dissection was performed and gradually the adhesion was released and we felt into the abscess, which seemed to be more like stool, this pus was suctioned out and culture was obtained and finally with a sharp and blunt dissection the whole mass was completely released from the anterior abdominal wall and it was noticed that it consisted of the distal part of the small bowel and the midportion of the proximal part of the sigmoid colon. The sigmoid colon at this area was severely inflamed and it apparently had a perforation, which seems to be most probably diverticulitis and the small bowel that was covering the abscess was completely inflamed and distorted and obviously it was obstructed. As this part of the small bowel was not salvageable, the decision was made for resection. A small part of the small bowel was resected with the WILBERTO stapler. I think that about 15 cm was removed and the mesentery was ligated with multiple ligation of the 0 silk and this part of the small bowel, which was completely damaged and distorted was removed. An end-to-end functional anastomosis was performed with a WILBERTO stapler. The mesentery defect in the mesentery was approximated with multiple interrupted suture with 3-0 silk. A good anastomosis and patent anastomosis were obtained. At this time, the content of the small bowel, which was very dilated was mixed into the stomach and according to the anesthesiologist over three liters of bilious fluid was aspirated. The next step attention was given to the sigmoid colon and the white line of Toldt was released and the part of the sigmoid colon which had perforation and inflammation was delivered. This part was isolated and then it was resected with the help of the WILBERTO stapler. The mesocolon was ligated and with multiple ligation of 0 silk and the perforated part of the sigmoid colon was removed. At this time, the intraperitoneal cavity was thoroughly irrigated with antibiotic solution and then the location of the colostomy was selected and was treated. The proximal end was introduced into the colostomy site. The colon was secured in place with multiple interrupted suture of 3-0 Vicryl to the fascia. At the next step, a Joss drain was placed in the pelvis and was brought out from a separate stab wound. The midline incision was approximated with a running suture of 0 Vicryl for posterior fascia and peritoneum and # 1 Prolene for the fascia. The skin was approximated with multiple skin caitlin. The incision was covered and then the colostomy was matured with multiple interrupted suture of 3-0 Vicryl. The patient tolerated the procedure very well and was transferred to intensive care unit intubated. The sponge and needle counts were correct. Estimated blood loss was 50 mL. The condition of the patient at the end of procedure is stable. Sean Betancur M.D. DR: CHICO JOB#: [id number] CC: NOLA
[2017-05-20] MEDS: Piperacillin/Tazobactam 3.375 GM in NS 110 ML IVPB SCH (06:03)
[2017-05-20 06:12] LABS: MEAN CORPUSCULAR HEMOGLOBIN 31.6 PG (27.0-31.0); MEAN CORPUSCULAR HGB CONC 33.4 G/DL (32.0-36.0); MEAN CORPUSCULAR VOLUME 95 FL (80-99); PLATELET COUNT 390 K/UL (150-450); RED BLOOD COUNT 4.35 M/UL (4.70-6.10); RED CELL DISTRIBUTION WIDTH 12.9 % (11.6-14.8)
[2017-05-20 07:06] LABS: ALANINE AMINOTRANSFERASE 6 U/L (3-41); ALBUMIN/GLOBULIN RATIO 0.8 (1.0-2.7); ANION GAP 16 (5-15); ASPARTATE AMINO TRANSFERASE 10 U/L (5-40); CALCIUM 7.3 mg/dL (8.6-10.2); CARBON DIOXIDE 20 mEQ/L (20-30); CHLORIDE 102 mEQ/L (98-107); GLOMERULAR FILTRATION RATE 15.4 mL/min (>60); HEMOLYSIS 4; POTASSIUM 4.4 mEQ/L (3.4-4.9); SODIUM 138 mEQ/L (135-145); TOTAL PROTEIN 5.4 g/dL (6.6-8.7)
[2017-05-20 08:03] LABS: BAND NEUTROPHILS % (MANUAL) 13 % (0-8); BASOPHILS % (MANUAL) 0 % (0-2); EOSINOPHILS % (MANUAL) 0 % (0-3); LYMPHOCYTES % (MANUAL) 16 % (20-45); NEUTROPHILS % (MANUAL) 60 % (45-75); PLATELET ESTIMATE ADEQUATE; PLATELET MORPHOLOGY NORMAL; TOTAL CELLS COUNTED 100
[2017-05-20] MEDS ORDERED: Pantoprazole Inj IVP SCH (09:00)
[2017-05-20] MEDS ORDERED: Enoxaparin 30mg Inj SUBQ SCH (09:00)
[2017-05-20 09:04] LABS: ABG ALLEN TEST POSITIVE; ABG BASE EXCESS -5.6; ABG PCO2 37.4 mmHg (35.0-45.0)
[2017-05-20 11:19] LABS: KETONES,URINE NEGATIVE (NEGATIVE); LEUKOCYTE ESTERASE ,URINE 1+ (NEGATIVE); NITRITE,URINE NEGATIVE (NEGATIVE); PH,URINE 5 (4.5-8.0); PROTEIN,URINE 2+ (NEGATIVE); UROBILINOGEN,URINE NORMAL MG/DL (0.0-1.0)
[2017-05-20 11:29] LABS: APPEARANCE,URINE SLIGHTLY CLOUDY
[2017-05-20 11:30] LABS: BACTERIA,URINE FEW /HPF; RBC,URINE 60-80 /HPF (0 - 0); SQUAMOUS EPITHELIAL CELL,UR OCCASIONAL /LPF (NONE/OCC)
[2017-05-20 11:38] LABS: CREATININE, RANDOM URINE 170.1 mg/dL
[2017-05-20] MEDS ORDERED: Racemic EPINEPHrine 2.25% 0.5ml HHN PRN ×2 (11:45→22:00)
--- NOTE | 2017-05-20 12:10 | Pulmonology Progress Note ---
Assessment/Plan Assessment/Plan 1. Exploratory laparotomy. 2. Resection of small bowel with primary anastomosis. 3. Drainage of intraabdominal abscess. 4. Colon resection and colostomy. 5. Respiratory failure PLAN care noted IV antibiotics per primary team respiratory care Ventilatory off supportive care suction if needed oxygen therapy prognosis guarded Subjective Allergies: Coded Allergies: No Known Allergies (Unverified , 05/18/17) Subjective asked to follow self extubated on nasal cannula Objective Last 24 Hour Vital Signs Date Time Temp Pulse Resp B/P Pulse Ox O2 Delivery O2 Flow Rate FiO2 05/20/17 11:30 Nasal Cannula 2.0 99 05/20/17 11:30 86 16 Nasal Cannula 2.0 99 05/20/17 11:25 84 19 28 05/20/17 11:25 28 05/20/17 11:00 82 16 112/61 99 Mechanical Ventilator 28 05/20/17 10:00 82 16 106/69 99 Mechanical Ventilator 28 05/20/17 09:00 86 16 105/69 99 Mechanical Ventilator 28 05/20/17 08:36 87 16 28 05/20/17 08:00 85 05/20/17 08:00 28 05/20/17 08:00 98.5 85 14 98/70 99 Mechanical Ventilator 28 05/20/17 07:00 85 17 102/58 99 Mechanical Ventilator 40 05/20/17 06:36 86 18 28 05/20/17 06:00 80 17 96/62 100 Mechanical Ventilator 40 05/20/17 05:29 83 05/20/17 05:24 88 18 28 05/20/17 05:00 88 14 98/62 100 Mechanical Ventilator 40 05/20/17 04:51 98.0 05/20/17 04:00 98.3 91 15 117/62 99 Mechanical Ventilator 40 05/20/17 03:00 82 14 95/64 99 Mechanical Ventilator 40 05/20/17 02:59 83 14 28 05/20/17 02:00 80 14 104/67 99 Mechanical Ventilator 40 05/20/17 01:53 84 17 28 05/20/17 01:00 80 16 111/70 99 Mechanical Ventilator 40 05/20/17 00:30 81 17 111/70 99 Mechanical Ventilator 40 05/20/17 00:08 28 05/20/17 00:00 81 05/20/17 00:00 98.5 81 17 109/67 99 Mechanical Ventilator 40 05/20/17 00:00 28 05/19/17 23:29 81 16 134/68 100 Mechanical Ventilator 40 05/19/17 23:00 98.1 84 14 136/67 100 Mechanical Ventilator 05/19/17 22:50 81 16 140/64 100 Mechanical Ventilator 05/19/17 22:40 82 17 148/70 100 Mechanical Ventilator 05/19/17 22:38 79 16 99 05/19/17 22:30 82 15 142/74 100 Mechanical Ventilator 05/19/17 22:27 80 14 50 05/19/17 22:25 81 14 155/73 100 Mechanical Ventilator 05/19/17 22:17 97.7 79 14 151/77 99 Mechanical Ventilator 05/19/17 22:17 40 05/19/17 22:15 79 05/19/17 16:00 98 05/19/17 16:00 97.8 101 20 143/83 97 Room Air Intake and Output 05/19/17 05/20/17 19:00 07:00 Intake Total 4052.5 ml Output Total 550 ml 4520 ml Balance -550 ml -467.5 ml Intake IV Total 4052.5 ml Output Urine Total 355 ml Stool Total 0 ml Gastric Drainage Total 550 ml 4005 ml Drainage Total 60 ml Estimated Blood Loss 100 ml Objective WDWN NAD clear breath sounds bilaterally without rhonchi or wheeze [id number] without MRG tender abdomen no CCE nonfocal Laboratory Tests 05/20/17 00:00: Arterial Blood pH 7.274L, Arterial Blood Partial Pressure CO2 47.4H, Arterial Blood Partial Pressure O2 162.0H, Arterial Blood HCO3 21.5L, Arterial Blood Oxygen Saturation 98.4H, Arterial Blood Base Excess -5.5, Dnate Test Positive 05/20/17 05:15: White Blood Count 9.0, Red Blood Count 4.35L, Hemoglobin 13.7L, Hematocrit 41.2L , Mean Corpuscular Volume 95, Mean Corpuscular Hemoglobin 31.6H, Mean Corpuscular Hemoglobin Concent 33.4, Red Cell Distribution Width 12.9, Platelet Count 390, Mean Platelet Volume 7.0, Neutrophils (%) (Auto) , Lymphocytes (%) ( Auto) , Monocytes (%) (Auto) , Eosinophils (%) (Auto) , Basophils (%) (Auto) , Differential Total Cells Counted 100, Neutrophils % (Manual) 60, Lymphocytes % ( Manual) 16L, Monocytes % (Manual) 11H, Eosinophils % (Manual) 0, Basophils % ( Manual) 0, Band Neutrophils 13H, Platelet Estimate Adequate, Platelet Morphology Normal, Red Blood Cell Morphology Normal, Sodium Level 138, Potassium Level 4.4, Chloride Level 102, Carbon Dioxide Level 20, Anion Gap 16H , Blood Urea Nitrogen 56H, Creatinine 4.0H, Estimat Glomerular Filtration Rate 15.4, Glucose Level 197H, Calcium Level 7.3L, Total Bilirubin 0.6, Aspartate Amino Transf (AST/SGOT) 10, Alanine Aminotransferase (ALT/SGPT) 6, Alkaline Phosphatase 56, Total Creatine Kinase 81, Total Protein 5.4L, Albumin 2.5L, Globulin 2.9, Albumin/Globulin Ratio 0.8L 05/20/17 08:36: Arterial Blood pH 7.337L, Arterial Blood Partial Pressure CO2 37.4, Arterial Blood Partial Pressure O2 111.8H, Arterial Blood HCO3 19.6L, Arterial Blood Oxygen Saturation 97.9, Arterial Blood Base Excess -5.6, Dante Test Positive 05/20/17 10:15: Ionized Calcium (Measured) 0.93L 05/20/17 11:00: Urine Color Yellow, Urine Appearance Slightly cloudy, Urine pH 5, Urine Specific [place] 1.020, Urine Protein 2+H, Urine Glucose (UA) Negative, Urine Ketones Negative, Urine Occult Blood 5+H, Urine Nitrite Negative, Urine Bilirubin Negative, Urine Urobilinogen Normal, Urine Leukocyte Esterase 1+H, Urine RBC 60-80H, Urine WBC 5-10H, Urine Squamous Epithelial Cells Occasional, Urine Bacteria Few, Urine Osmolality [Pending], Urine Random Sodium 16, Urine Creatinine 170.1 Current Medications Medications (Trade) Dose Ordered Sig/Nii Route PRN Reason Start Time Stop Time Status Last Admin Dose Admin Acetaminophen (Tylenol) 650 mg Q4H PRN RECTAL FEVER 05/19/17 22:00 06/18/17 21:59 Heparin Sodium (Porcine) (Heparin 5000 units/ml) 5,000 units EVERY 8 HOURS SUBQ 05/20/17 14:00 06/19/17 13:59 Hydromorphone HCl (Dilaudid) 0.5 mg Q3H PRN IVP Pain Score 1-3 05/19/17 22:00 05/26/17 21:59 Hydromorphone HCl (Dilaudid) 1 mg Q3H PRN IVP pain score 4-6 05/19/17 22:00 05/26/17 21:59 Hydromorphone HCl (Dilaudid) 2 mg Q3H PRN IVP pain score 7-10 05/19/17 22:00 05/26/17 21:59 05/20/17 08:37 Metronidazole (Flagyl) 100 ml @ 100 mls/hr Q8HR IVPB 05/20/17 14:00 05/27/17 13:59 Ondansetron HCl (Zofran) 4 mg Q6H PRN IVP Nausea & Vomiting 05/19/17 22:00 06/18/17 21:59 Pantoprazole 40 mg 40 mg DAILY IVP 05/20/17 09:00 06/19/17 08:59 05/20/17 08:36 Piperacillin Sod/ Tazobactam Sod/ Sodium Chloride (Zosyn/Sodium Chloride) 110 ml @ 27.5 mls/hr EVERY 8 HOURS IVPB 05/19/17 06:00 05/26/17 05:59 05/20/17 06:03 Racepinephrine (S2) 0.5 ml DAILYPRN PRN HHN Bronchospasm 05/20/17 11:45 06/19/17 11:44 Sodium Chloride 1,000 ml @ 150 mls/hr Q6H40M IV 05/20/17 11:15 06/19/17 11:14 05/20/17 11:22 JUAN MANUEL SANCHEZ May 20, 2017 12:10
[2017-05-20 12:49] LABS: ABG BASE EXCESS -5.1; ABG PCO2 37.6 mmHg (35.0-45.0)
[2017-05-20 12:50] LABS: ABG ALLEN TEST POSITIVE
--- NOTE | 2017-05-20 13:15 | 48 Hour Post Anesthesia Eval ---
Post Anesthesia Evaluation Procedure: Exploratory laparotomy Date of Evaluation: May 20, 2017 Time of Evaluation: 13:13 Blood Pressure Systolic: 102 0: 58 Pulse Rate: 83 Respiratory Rate: 22 Temperature (Fahrenheit): 97.6 O2 Sat by Pulse Oximetry: 98 Airway: patent Nausea: No Vomiting: No Pain Intensity: 3 Hydration Status: adequate Cardiopulmonary Status: stable Follow-up Care/Observations: n/a Post-Anesthesia Complications: none Follow-up care needed: N/A AYALA SOTELO M.D. May 20, 2017 13:15
[2017-05-20] MEDS: metroNIDAZOLE 500mg 100 ML IVPB SCH ×3 (13:53→22:00)
[2017-05-20] MEDS: Heparin 5000 units/ml inj SUBQ SCH ×2 (13:54→21:35)
--- NOTE | 2017-05-20 15:10 | Diagnostic Imaging Report ---
Indication: Dyspnea Comparison: 05/18/17 A single view chest radiograph was obtained. Findings: Mild cardiomegaly is present. There is scoliosis present. Nasogastric tube is noted. The tip is not well-visualized but appears to be somewhat high in location. No infiltrates are identified. Pulmonary vascularity is within normal limits. Bones are osteopenic. Impression: Nasogastric tube appears high in location. Suggest confirmation as the tip is not well-seen. Scoliosis No acute cardiopulmonary disease identified
--- NOTE | 2017-05-20 16:09 | General Surgery Progress Note ---
General Surgery-Progress Note Subjective Symptoms: improved Additional Comments urine out put is low and creatinine is 4 Objective Last 24 Hour Vital Signs Date Time Temp Pulse Resp B/P Pulse Ox O2 Delivery O2 Flow Rate FiO2 05/20/17 15:00 75 16 103/57 100 Nasal Cannula 2.0 05/20/17 14:00 77 16 100/66 100 Nasal Cannula 2.0 05/20/17 13:15 83 22 98 05/20/17 13:00 81 15 104/65 100 Nasal Cannula 2.0 05/20/17 12:00 82 05/20/17 12:00 98.6 81 16 102/65 99 Nasal Cannula 2.0 05/20/17 11:30 Nasal Cannula 2.0 99 05/20/17 11:30 86 16 Nasal Cannula 2.0 99 05/20/17 11:25 84 19 28 05/20/17 11:25 28 05/20/17 11:00 82 16 112/61 99 Mechanical Ventilator 05/20/17 10:00 82 16 106/69 99 Mechanical Ventilator 28 05/20/17 09:00 86 16 105/69 99 Mechanical Ventilator 28 05/20/17 08:36 87 16 28 05/20/17 08:00 85 05/20/17 08:00 28 05/20/17 08:00 98.5 85 14 98/70 99 Mechanical Ventilator 05/20/17 07:00 85 17 102/58 99 Mechanical Ventilator 40 05/20/17 06:36 86 18 28 05/20/17 06:00 80 17 96/62 100 Mechanical Ventilator 40 05/20/17 05:29 83 05/20/17 05:24 88 18 28 05/20/17 05:00 88 14 98/62 100 Mechanical Ventilator 40 05/20/17 04:51 98.0 05/20/17 04:00 98.3 91 15 117/62 99 Mechanical Ventilator 40 05/20/17 03:00 82 14 95/64 99 Mechanical Ventilator 40 05/20/17 02:59 83 14 28 05/20/17 02:00 80 14 104/67 99 Mechanical Ventilator 40 05/20/17 01:53 84 17 28 05/20/17 01:00 80 16 111/70 99 Mechanical Ventilator 40 05/20/17 00:30 81 17 111/70 99 Mechanical Ventilator 40 05/20/17 00:08 28 05/20/17 00:00 81 05/20/17 00:00 98.5 81 17 109/67 99 Mechanical Ventilator 40 05/20/17 00:00 28 05/19/17 23:29 81 16 134/68 100 Mechanical Ventilator 40 05/19/17 23:00 98.1 84 14 136/67 100 Mechanical Ventilator 05/19/17 22:50 81 16 140/64 100 Mechanical Ventilator 05/19/17 22:40 82 17 148/70 100 Mechanical Ventilator 05/19/17 22:38 79 16 99 05/19/17 22:30 82 15 142/74 100 Mechanical Ventilator 05/19/17 22:27 80 14 50 05/19/17 22:25 81 14 155/73 100 Mechanical Ventilator 05/19/17 22:17 97.7 79 14 151/77 99 Mechanical Ventilator 05/19/17 22:17 40 05/19/17 22:15 79 I&O Intake and Output 05/19/17 05/20/17 19:00 07:00 Intake Total 4052.5 ml Output Total 550 ml 4520 ml Balance -550 ml -467.5 ml Intake IV Total 4052.5 ml Output Urine Total 355 ml Stool Total 0 ml Gastric Drainage Total 550 ml 4005 ml Drainage Total 60 ml Estimated Blood Loss 100 ml Dressing: dry Drains: lizett Respiratory: clear Abdomen: soft, distended, tenderness, absent bowel sounds Extremities: no tenderness Laboratory Tests Test 05/20/17 00:00 05/20/17 05:15 05/20/17 08:36 05/20/17 10:15 Arterial Blood pH 7.274 (7.350-7.450) 7.337 (7.350-7.450) Arterial Blood Partial Pressure CO2 47.4 mmHg (35.0-45.0) H 37.4 mmHg (35.0-45.0) Arterial Blood Partial Pressure O2 162.0 mmHg (75.0-100.0) H 111.8 mmHg (75.0-100.0) H Arterial Blood HCO3 21.5 mmol/L (22.0-26.0) L 19.6 mmol/L (22.0-26.0) L Arterial Blood Oxygen Saturation 98.4 % (92.0-98.0) H 97.9 % (92.0-98.0) Arterial Blood Base Excess -5.5 -5.6 Dante Test Positive Positive White Blood Count 9.0 K/UL (4.8-10.8) Red Blood Count 4.35 M/UL (4.70-6.10) L Hemoglobin 13.7 G/DL (14.2-18.0) L Hematocrit 41.2 % (42.0-52.0) L Mean Corpuscular Volume 95 FL (80-99) Mean Corpuscular Hemoglobin 31.6 PG (27.0-31.0) H Mean Corpuscular Hemoglobin Concent 33.4 G/DL (32.0-36.0) Red Cell Distribution Width 12.9 % (11.6-14.8) Platelet Count 390 K/UL (150-450) Mean Platelet Volume 7.0 FL (6.5-10.1) Neutrophils (%) (Auto) % (45.0-75.0) Lymphocytes (%) (Auto) % (20.0-45.0) Monocytes (%) (Auto) % (1.0-10.0) Eosinophils (%) (Auto) % (0.0-3.0) Basophils (%) (Auto) % (0.0-2.0) Differential Total Cells Counted 100 Neutrophils % (Manual) 60 % (45-75) Lymphocytes % (Manual) 16 % (20-45) L Monocytes % (Manual) 11 % (1-10) H Eosinophils % (Manual) 0 % (0-3) Basophils % (Manual) 0 % (0-2) Band Neutrophils 13 % (0-8) H Platelet Estimate Adequate Platelet Morphology Normal Red Blood Cell Morphology Normal Sodium Level 138 mEQ/L (135-145) Potassium Level 4.4 mEQ/L (3.4-4.9) Chloride Level 102 mEQ/L (98-107) Carbon Dioxide Level 20 mEQ/L (20-30) Anion Gap 16 (5-15) H Blood Urea Nitrogen 56 mg/dL (7-23) H Creatinine 4.0 mg/dL (0.7-1.2) H Estimat Glomerular Filtration Rate 15.4 mL/min (>60) Glucose Level 197 mg/dL (74-106) H Calcium Level 7.3 mg/dL (8.6-10.2) L Total Bilirubin 0.6 mg/dL (0.0-1.2) Aspartate Amino Transf (AST/SGOT) 10 U/L (5-40) Alanine Aminotransferase (ALT/SGPT) 6 U/L (3-41) Alkaline Phosphatase 56 U/L (40-129) Total Creatine Kinase 81 U/L (38-174) Total Protein 5.4 g/dL (6.6-8.7) L Albumin 2.5 g/dL (3.5-5.2) L Globulin 2.9 g/dL Albumin/Globulin Ratio 0.8 (1.0-2.7) L Ionized Calcium (Measured) 0.93 mmol/L (1.10-1.35) L Test 05/20/17 11:00 05/20/17 12:30 Urine Color Yellow Urine Appearance Slightly cloudy Urine pH 5 (4.5-8.0) Urine Specific [place] 1.020 (1.005-1.035) Urine Protein 2+ (NEGATIVE) H Urine Glucose (UA) Negative (NEGATIVE) Urine Ketones Negative (NEGATIVE) Urine Occult Blood 5+ (NEGATIVE) H Urine Nitrite Negative (NEGATIVE) Urine Bilirubin Negative (NEGATIVE) Urine Urobilinogen Normal MG/DL (0.0-1.0) Urine Leukocyte Esterase 1+ (NEGATIVE) H Urine RBC 60-80 /HPF (0 - 0) H Urine WBC 5-10 /HPF (0 - 0) H Urine Squamous Epithelial Cells Occasional /LPF Urine Bacteria Few /HPF (NONE) Urine Osmolality Pending Urine Random Sodium 16 mmol/L Urine Creatinine 170.1 mg/dL Arterial Blood pH 7.345 (7.350-7.450) Arterial Blood Partial Pressure CO2 37.6 mmHg (35.0-45.0) Arterial Blood Partial Pressure O2 138.3 mmHg (75.0-100.0) H Arterial Blood HCO3 20.1 mmol/L (22.0-26.0) L Arterial Blood Oxygen Saturation 98.5 % (92.0-98.0) H Arterial Blood Base Excess -5.1 Dante Test Positive Assessment Post-op Diagnosis perforated sigmoid colon with intra-abdominal abscess & small bowel obstruction Plan Additional Comments continue as before FRED MILES May 20, 2017 16:09
[2017-05-20] MEDS ORDERED: Tubing IV Secondary IV ONE ×2 (16:50→17:34)
[2017-05-20] MEDS ORDERED: NS 275ml ONE ×2 (16:50→17:34)
[2017-05-20 17:34] LABS: CALCIUM 7.7 mg/dL (8.6-10.2); CREATININE 4.1 mg/dL (0.7-1.2); POTASSIUM 4.4 mEQ/L (3.4-4.9)
[2017-05-20 17:44] LABS: CKMB 2.4 ng/mL (< 6.7)
[2017-05-20] MEDS ORDERED: Piperacillin/Tazobactam 3.375 GM in NS 110 ML IVPB SCH (18:00)
[2017-05-20] MEDS ORDERED: Hydromorphone 0.5mg/0.5ml inj IVP PRN (22:00)
[2017-05-20] MEDS ORDERED: Acetaminophen 650 MG SUPP RECTAL PRN (22:00)
[2017-05-20] MEDS ORDERED: HYDROmorphone 1mg/ml Carpuject IVP PRN (22:00)
[2017-05-20] MEDS ORDERED: D5 1/2NS w/KCl 20mEq 1,000 ML IV SCH (23:00)
--- NOTE | 2017-05-20 23:45 | Progress Note ---
DATE: 05/20/2017 CARDIOLOGY PROGRESS NOTE SUBJECTIVE: The patient had continuing signs of abdominal obstruction yesterday. Decision was made from the surgeon for emergent laparotomy. Intraoperative findings included probable rupture diverticulosis with abscess and adhesions. The patient had distal small bowel and proximal colon resected with colostomy in place. The patient remains on the ventilator overnight. OBJECTIVE: VITAL SIGNS: Blood pressure 106/69, heart rate 82, and respiratory rate 16. No fever spikes. LUNGS: Bilateral breath sounds. HEART: Regular rhythm and rate. Normal S1 and S2. ABDOMEN: Quiet. bowel sounds. Colostomy is clean. EXTREMITIES: There is no edema. LABORATORY DATA: White count 9 and hemoglobin 13.7. Potassium 4.4, BUN 56, creatinine 4.0, bicarbonate 20, and glucose 197. Albumin is 2.5. IMPRESSION: 1. Status post laparotomy and bowel resection. 2. Abdominal sepsis. 3. Respiratory failure. 4. Acute renal failure. 5. Atherosclerotic cardiovascular disease. 6. Cholelithiasis. 7. Possible adrenal mass. 8. Possible cystitis. 9. Metabolic acidosis. PLAN: 1. Hydration. 2. Bicarbonate as needed. 3. Monitor renal parameters. 4. Renal consult pending. 5. Renal ultrasound is ordered and is pending. 6. Wean off ventilator. 7. Broad-spectrum antibiotics. 8. Remains in serious condition with guarded prognosis. Rico Ramos M.D. DR: JAVON JOB#: [id number] CC:
--- NOTE | 2017-05-20 23:45 | Consultation ---
DATE OF CONSULTATION: 05/20/2017 CONSULTING PHYSICIAN: Alex Hampton M.D. ATTENDING PHYSICIAN: Rico Ramos M.D. REFERRING PHYSICIAN: Rico Ramos M.D. REASON FOR CONSULTATION: Acute kidney injury. HISTORY OF PRESENT ILLNESS: The patient is a 61-year-old male who presented with bowel obstruction and acute abdomen. He was seen after surgery on 05/19/2017 for exploratory laparotomy, resection of small bowel with primary anastomosis, drainage of intra-abdominal abscess, colon resection, and colostomy. The patient states he has been in generally good health. He has had history of cataracts and retinal detachment, but no other history of severe disease. No history of kidney disease. He did have elevated blood pressure on arrival and then had fallen blood pressure briefly to 98/62 and 96/62 postoperatively. The patient was oliguric last night and now is making about 30 mL/hour. HABITS: He quit smoking and alcohol about 3 months ago. He states he was not a real heavy alcohol drinker. SURGERIES: Cataracts and retinal detachment. SOCIAL HISTORY: He is single. Disabled. MEDICATIONS AT HOME: Denies. SYSTEM REVIEW: HEAD, EYES, EARS, NOSE, THROAT: He has decreased visual acuity. Hearing is good. ENDOCRINE: No known diabetes or thyroid disease. PULMONARY: No asthma or TB. He self-extubated himself in the ICU shortly before my arrival. CARDIAC: No angina. Mild palpitations. GASTROINTESTINAL: No prior history of gastrointestinal disease or ulcers. GENITOURINARY: No history of urinary hesitancy, prostate problems, or hematuria. NEUROLOGIC: No CVA or syncope. PHYSICAL EXAMINATION: GENERAL: The patient is lying in bed in the ICU. VITAL SIGNS: Temperature 98.6, pulse 81, respirations 16, blood pressure 102/65, and pulse oximetry 99% on 2 L. HEAD, EYES, EARS, NOSE, THROAT: Sclerae nonicteric. Ocular motions intact in all directions. Oral mucosa is dry. NECK: No adenopathy or thyroid enlargement. LUNGS: Clear. HEART: Regular rhythm. No murmur. ABDOMEN: Soft without organomegaly and postop colostomy and drains. GENITOURINARY: Penis and testes normal. Neal catheter is in place. EXTREMITIES: No edema, cyanosis, or clubbing. NEUROLOGIC: He is alert, responsive, and somewhat sleepy. Ocular motions intact in all directions. Mouth symmetric. Tongue is midline. He moves all extremities. REVIEW OF PERTINENT LABORATORIES: The urine sodium is 16, urine creatinine is 170. Urinalysis shows 2+ protein, 5+ occult blood, 60-80 red cells, and 5-10 white cells per high-powered field. Chemistries today, sodium 138, potassium 4.4, chloride 102, CO2 20, BUN 56, creatinine 4, glucose 197. CK is normal at 81. Troponin less than 0.30. Note that on admission, BUN 31 and creatinine 2.5. IMPRESSION: The patient has acute kidney injury, most likely prerenal component is significant with low urine sodium and high urine creatinine. He did have CT scan done but no contrast was given. There are tiny nonobstructive stones in the left kidney. No hydronephrosis. PLAN: At this time, the patient will be given more IV fluids and hopefully his acute kidney injury will improve. It is not clear what his renal baseline is and we have no old records. We will watch him closely for his fluid balance. Thank you so much. Alex Hampton M.D. : Srini JOB#: [id number] CC:
[2017-05-21] VITALS: BP 120/83
[2017-05-21 04:00] VITALS: BP 126/80
[2017-05-21] MEDS: metroNIDAZOLE 500mg 100 ML IVPB SCH ×3 (05:00→22:00)
[2017-05-21 05:12] LABS: BASOPHILS % (AUTO) 0.6 % (0.0-2.0); EOSINOPHILS % (AUTO) 0.7 % (0.0-3.0); LYMPHOCYTES % (AUTO) 12.5 % (20.0-45.0); MEAN CORPUSCULAR HEMOGLOBIN 31.6 PG (27.0-31.0); MEAN CORPUSCULAR HGB CONC 32.7 G/DL (32.0-36.0); MEAN CORPUSCULAR VOLUME 97 FL (80-99); MEAN PLATELET VOLUME 6.8 FL (6.5-10.1); MONOCYTES % (AUTO) 11.5 % (1.0-10.0); NEUTROPHILS % (AUTO) 74.7 % (45.0-75.0); PLATELET COUNT 365 K/UL (150-450); RED BLOOD COUNT 4.05 M/UL (4.70-6.10); RED CELL DISTRIBUTION WIDTH 13.2 % (11.6-14.8); WHITE BLOOD COUNT 9.7 K/UL (4.8-10.8)
[2017-05-21 05:18] LABS: ALBUMIN/GLOBULIN RATIO 0.6 (1.0-2.7); CALCIUM 8.2 mg/dL (8.6-10.2); CREATININE 3.4 mg/dL (0.7-1.2); GLOMERULAR FILTRATION RATE 18.6 mL/min (>60); PHOSPHORUS 5.9 mg/dL (2.5-4.8); TOTAL PROTEIN 5.6 g/dL (6.6-8.7)
[2017-05-21 05:24] LABS: REFLEX LACTIC ACID YES OR NO YES
[2017-05-21 05:47] LABS: POTASSIUM 4.5 mEQ/L (3.4-4.9)
[2017-05-21] MEDS: Piperacillin/Tazobactam 3.375 GM in NS 110 ML IVPB SCH ×2 (06:00→18:21)
[2017-05-21] MEDS: Heparin 5000 units/ml inj SUBQ SCH ×3 (06:40→21:59)
[2017-05-21 08:00] VITALS: BP 131/79
--- NOTE | 2017-05-21 08:31 | Diagnostic Imaging Report ---
Indications: Shortness of breath Technique: Portable AP chest Findings: Comparison: 05/20/17 Linear density persists in right lung base. Left lung remains clear. Heart size, pulmonary vasculature remain within normal limits. Mild blunting of left costophrenic angle now suggested; right remain sharp. Nasogastric tube remains in place. IMPRESSION: Suggestion of development versus better visualization of small pleural effusion Stable right basal subsegmental atelectasis
[2017-05-21] MEDS: Pantoprazole Inj IVP SCH (08:52)
--- NOTE | 2017-05-21 10:18 | Diagnostic Imaging Report ---
Indications: Elevated renal function tests Technique: Transabdominal real-time grayscale and duplex Doppler imaging of the kidneys, retroperitoneum, and urinary bladder was performed Findings: Comparison: Noncontrast CT abdomen pelvis on 517 Right kidney measures 10.8 cm in length. Normal contour, echotexture, cortical thickness. No stones, other focal lesions, hydronephrosis, or obvious perinephric abnormalities. Left kidney measures 11.4 cm in length. Normal contour, echotexture, cortical thickness. No stones, other focal lesions, hydronephrosis, or obvious perinephric abnormalities. The intrahepatic portion of inferior vena cava is patent and normal caliber. The urinary bladder is mildly distended without obvious abnormality. IMPRESSION: Negative bilateral renal/retroperitoneal ultrasound
[2017-05-21 12:00] VITALS: BP 131/85
--- NOTE | 2017-05-21 12:48 | General Surgery Progress Note ---
General Surgery-Progress Note Subjective Symptoms: improved Objective Last 24 Hour Vital Signs Date Time Temp Pulse Resp B/P Pulse Ox O2 Delivery O2 Flow Rate FiO2 05/21/17 12:00 97.2 64 20 131/85 98 Nasal Cannula 2.0 05/21/17 08:00 87 05/21/17 08:00 97.6 87 20 131/79 98 Nasal Cannula 2.0 05/21/17 08:00 98.0 05/21/17 07:22 80 20 Nasal Cannula 2.0 28 05/21/17 07:22 93 Nasal Cannula 2.0 28 05/21/17 07:22 Nasal Cannula 2.0 28 05/21/17 04:00 98.0 72 20 126/80 92 Nasal Cannula 05/21/17 04:00 69 05/21/17 00:00 97.7 67 20 120/83 90 Nasal Cannula 2.0 05/21/17 00:00 64 05/20/17 21:00 82 10 141/74 100 Room Air 05/20/17 20:00 97.7 79 13 99/85 100 Room Air 05/20/17 20:00 79 05/20/17 19:00 80 15 121/71 100 Room Air 05/20/17 18:48 Room Air 05/20/17 18:48 76 16 Room Air 05/20/17 18:00 98.2 73 15 109/71 98 Room Air 05/20/17 17:00 77 15 125/68 99 Room Air 05/20/17 16:00 75 05/20/17 16:00 73 16 114/68 100 Nasal Cannula 2.0 05/20/17 15:00 75 16 103/57 100 Nasal Cannula 2.0 05/20/17 14:00 77 16 100/66 100 Nasal Cannula 2.0 05/20/17 13:15 83 22 98 05/20/17 13:00 81 15 104/65 100 Nasal Cannula 2.0 I&O Intake and Output 05/20/17 05/21/17 19:00 07:00 Intake Total 1905.0 ml 2132.5 ml Output Total 505 ml 740 ml Balance 1400.0 ml 1392.5 ml Intake Oral 0 ml IV Total 1905.0 ml 2132.5 ml Output Urine Total 295 ml 740 ml Gastric Drainage Total 200 ml Drainage Total 10 ml Dressing: dry Drains: lizett Respiratory: clear Abdomen: soft, distended, absent bowel sounds Extremities: no tenderness Laboratory Tests Test 05/20/17 16:15 05/21/17 04:19 05/21/17 06:27 Sodium Level 141 mEQ/L (135-145) 144 mEQ/L (135-145) Potassium Level 4.4 mEQ/L (3.4-4.9) 4.5 mEQ/L (3.4-4.9) Chloride Level 107 mEQ/L (98-107) 109 mEQ/L (98-107) H Carbon Dioxide Level 18 mEQ/L (20-30) L 18 mEQ/L (20-30) L Anion Gap 16 (5-15) H 17 (5-15) H Blood Urea Nitrogen 62 mg/dL (7-23) H 60 mg/dL (7-23) H Creatinine 4.1 mg/dL (0.7-1.2) H 3.4 mg/dL (0.7-1.2) H Estimat Glomerular Filtration Rate 15.0 mL/min (>60) 18.6 mL/min (>60) Glucose Level 143 mg/dL (74-106) H 103 mg/dL (74-106) Uric Acid 9.6 mg/dL (3.0-7.5) H Calcium Level 7.7 mg/dL (8.6-10.2) L 8.2 mg/dL (8.6-10.2) L Total Creatine Kinase 136 U/L (38-174) Creatine Kinase MB 2.4 ng/mL (< 6.7) Creatine Kinase MB Relative Index 1.7 Pro-B-Type Natriuretic Peptide 1280 pg/mL (0-125) H White Blood Count 9.7 K/UL (4.8-10.8) Red Blood Count 4.05 M/UL (4.70-6.10) L Hemoglobin 12.8 G/DL (14.2-18.0) L Hematocrit 39.1 % (42.0-52.0) L Mean Corpuscular Volume 97 FL (80-99) Mean Corpuscular Hemoglobin 31.6 PG (27.0-31.0) H Mean Corpuscular Hemoglobin Concent 32.7 G/DL (32.0-36.0) Red Cell Distribution Width 13.2 % (11.6-14.8) Platelet Count 365 K/UL (150-450) Mean Platelet Volume 6.8 FL (6.5-10.1) Neutrophils (%) (Auto) 74.7 % (45.0-75.0) Lymphocytes (%) (Auto) 12.5 % (20.0-45.0) L Monocytes (%) (Auto) 11.5 % (1.0-10.0) H Eosinophils (%) (Auto) 0.7 % (0.0-3.0) Basophils (%) (Auto) 0.6 % (0.0-2.0) Hemoglobin A1c 5.4 % (< 6.0) Lactic Acid Level 2.10 mmol/L (0.66-2.22) 0.90 mmol/L (0.66-2.22) Phosphorus Level 5.9 mg/dL (2.5-4.8) H Magnesium Level 2.0 mg/dL (1.7-2.5) Total Bilirubin 0.3 mg/dL (0.0-1.2) Aspartate Amino Transf (AST/SGOT) 11 U/L (5-40) Alanine Aminotransferase (ALT/SGPT) 6 U/L (3-41) Alkaline Phosphatase 62 U/L (40-129) Total Protein 5.6 g/dL (6.6-8.7) L Albumin 2.2 g/dL (3.5-5.2) L Globulin 3.4 g/dL Albumin/Globulin Ratio 0.6 (1.0-2.7) L Assessment Post-op Diagnosis perforated sigmoid colon with intra-abdominal abscess & small bowel obstruction Plan Additional Comments continue as before FRED MILES May 21, 2017 12:48
--- NOTE | 2017-05-21 13:49 | Nephrology Progress Note ---
Assessment/Plan Problem List: (1) LALO (acute kidney injury) (2) Bowel obstruction (3) S/P Colectomy & Colostomy Plan prior oliguria improved, large amount ngt drainage prior, creatinine downtrending, continue iv hydration and postop care Subjective Constitutional: Reports: weakness HEENT: Reports: no symptoms Genitourinary: Reports: no symptoms Neurologic/Psychiatric: Reports: no symptoms Objective Objective Last 24 Hour Vital Signs Date Time Temp Pulse Resp B/P Pulse Ox O2 Delivery O2 Flow Rate FiO2 05/21/17 12:00 57 05/21/17 12:00 97.2 64 20 131/85 98 Nasal Cannula 2.0 05/21/17 08:00 87 05/21/17 08:00 97.6 87 20 131/79 98 Nasal Cannula 2.0 05/21/17 08:00 98.0 05/21/17 07:22 80 20 Nasal Cannula 2.0 28 05/21/17 07:22 93 Nasal Cannula 2.0 28 05/21/17 07:22 Nasal Cannula 2.0 28 05/21/17 04:00 98.0 72 20 126/80 92 Nasal Cannula 05/21/17 04:00 69 05/21/17 00:00 97.7 67 20 120/83 90 Nasal Cannula 2.0 05/21/17 00:00 64 05/20/17 21:00 82 10 141/74 100 Room Air 05/20/17 20:00 97.7 79 13 99/85 100 Room Air 05/20/17 20:00 79 05/20/17 19:00 80 15 121/71 100 Room Air 05/20/17 18:48 Room Air 05/20/17 18:48 76 16 Room Air 05/20/17 18:00 98.2 73 15 109/71 98 Room Air 05/20/17 17:00 77 15 125/68 99 Room Air 05/20/17 16:00 75 05/20/17 16:00 73 16 114/68 100 Nasal Cannula 2.0 05/20/17 15:00 75 16 103/57 100 Nasal Cannula 2.0 05/20/17 14:00 77 16 100/66 100 Nasal Cannula 2.0 Intake and Output 05/20/17 05/21/17 19:00 07:00 Intake Total 1905.0 ml 2132.5 ml Output Total 505 ml 740 ml Balance 1400.0 ml 1392.5 ml Intake Oral 0 ml IV Total 1905.0 ml 2132.5 ml Output Urine Total 295 ml 740 ml Gastric Drainage Total 200 ml Drainage Total 10 ml Laboratory Tests 05/20/17 16:15: Sodium Level 141, Potassium Level 4.4, Chloride Level 107, Carbon Dioxide Level 18L, Anion Gap 16H, Blood Urea Nitrogen 62H, Creatinine 4.1H, Estimat Glomerular Filtration Rate 15.0, Glucose Level 143H, Uric Acid 9.6H, Calcium Level 7.7L, Total Creatine Kinase 136, Creatine Kinase MB 2.4, Creatine Kinase MB Relative Index 1.7, Pro-B-Type Natriuretic Peptide 1280H 05/21/17 04:19: Sodium Level 144, Potassium Level 4.5, Chloride Level 109H, Carbon Dioxide Level 18L, Anion Gap 17H, Blood Urea Nitrogen 60H, Creatinine 3.4H, Estimat Glomerular Filtration Rate 18.6, Glucose Level 103, Calcium Level 8.2L, White Blood Count 9.7, Red Blood Count 4.05L, Hemoglobin 12.8L, Hematocrit 39.1L, Mean Corpuscular Volume 97, Mean Corpuscular Hemoglobin 31.6H, Mean Corpuscular Hemoglobin Concent 32.7, Red Cell Distribution Width 13.2, Platelet Count 365, Mean Platelet Volume 6.8, Neutrophils (%) (Auto) 74.7, Lymphocytes (%) (Auto) 12.5L, Monocytes (%) (Auto) 11.5H, Eosinophils (%) (Auto) 0.7, Basophils (%) ( Auto) 0.6, Hemoglobin A1c 5.4, Lactic Acid Level 2.10, Phosphorus Level 5.9H, Magnesium Level 2.0, Total Bilirubin 0.3, Aspartate Amino Transf (AST/SGOT) 11, Alanine Aminotransferase (ALT/SGPT) 6, Alkaline Phosphatase 62, Total Protein 5.6L, Albumin 2.2L, Globulin 3.4, Albumin/Globulin Ratio 0.6L 05/21/17 06:27: Lactic Acid Level 0.90 Height (Feet): 5 Height (Inches): 8.00 Weight (Pounds): 195 General Appearance: no apparent distress, alert EENT: other - ngt Neck: normal alignment Cardiovascular: normal rate, regular rhythm Respiratory/Chest: lungs clear Abdomen: soft, other - ostomy Extremities: other - no edema 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
[2017-05-21 16:00] VITALS: BP 137/78
[2017-05-21 20:00] VITALS: BP 145/70
[2017-05-22] VITALS: BP 149/70
[2017-05-22 04:00] VITALS: BP 151/90
--- NOTE | 2017-05-22 04:00 | Progress Note ---
DATE: 05/21/2017 INTERNAL MEDICINE PROGRESS NOTE SUBJECTIVE: The patient self-extubated yesterday. No respiratory distress and counted subsequently. Stable on room air. Abdominal pain improved. Colostomy in place. Urine output is better. OBJECTIVE: VITAL SIGNS: Blood pressure 131/79, pulse 87, respirations 20, and afebrile. LUNGS: Bilateral breath sounds. Diminished at bases. HEART: Regular rhythm and rate. Normal S1 and S2. ABDOMEN: Soft and quite still with colostomy and tenderness diffusely. EXTREMITIES: No edema. LABORATORY DATA: White count 9.7 and hemoglobin 12.8. Lactic acid is 2.1. Hemoglobin A1c is 5.4. Sodium 144, potassium 4.5, bicarbonate 18, BUN 60, and creatinine 3.4. Albumin is 2.2. IMPRESSION: 1. Status post colectomy and colostomy for ruptured diverticular abscess with associated bowel obstruction. 2. Severe protein-calorie malnutrition. 3. Acute renal failure. 4. Metabolic acidosis, resolved. 5. Lactic acidosis. 6. Status post respiratory failure. PLAN: 1. Continue IV fluid. 2. Hydration. 3. Monitor renal parameters. 4. Bowel rest. 5. May consider TPN, if prolonged NPO status anticipated. 6. Empiric antibiotics. 7. DVT prophylaxis. Rico Ramos M.D. DR: JAVON JOB#: [id number] CC:
[2017-05-22] MEDS: metroNIDAZOLE 500mg 100 ML IVPB SCH ×3 (05:21→21:22)
[2017-05-22 05:22] LABS: BASOPHILS % (AUTO) 0.7 % (0.0-2.0); EOSINOPHILS % (AUTO) 7.9 % (0.0-3.0); LYMPHOCYTES % (AUTO) 12.8 % (20.0-45.0); MEAN CORPUSCULAR HEMOGLOBIN 30.6 PG (27.0-31.0); MEAN CORPUSCULAR HGB CONC 31.6 G/DL (32.0-36.0); MEAN CORPUSCULAR VOLUME 97 FL (80-99); MEAN PLATELET VOLUME 6.1 FL (6.5-10.1); MONOCYTES % (AUTO) 7.7 % (1.0-10.0); NEUTROPHILS % (AUTO) 70.9 % (45.0-75.0); PLATELET COUNT 380 K/UL (150-450); RED BLOOD COUNT 4.28 M/UL (4.70-6.10); RED CELL DISTRIBUTION WIDTH 13.4 % (11.6-14.8); WHITE BLOOD COUNT 9.8 K/UL (4.8-10.8)
[2017-05-22 05:28] LABS: CALCIUM 8.4 mg/dL (8.6-10.2); CREATININE 1.6 mg/dL (0.7-1.2); GLOMERULAR FILTRATION RATE 44.3 mL/min (>60); MAGNESIUM 1.7 mg/dL (1.7-2.5); PHOSPHORUS 3.1 mg/dL (2.5-4.8); POTASSIUM 4.6 mEQ/L (3.4-4.9)
[2017-05-22] MEDS: Heparin 5000 units/ml inj SUBQ SCH ×4 (05:29→21:13)
[2017-05-22] MEDS: Piperacillin/Tazobactam 3.375 GM in NS 110 ML IVPB SCH ×3 (06:30→22:59)
[2017-05-22 08:00] VITALS: BP 156/86
[2017-05-22] MEDS: Pantoprazole Inj IVP SCH (09:32)
[2017-05-22 12:00] VITALS: BP 148/86
[2017-05-22] MEDS ORDERED: Hydromorphone 0.5mg/0.5ml inj IVP PRN (13:00)
[2017-05-22] MEDS ORDERED: Acetaminophen 650 MG SUPP RECTAL PRN (13:00)
[2017-05-22] MEDS: HYDROmorphone 1mg/ml Carpuject IVP PRN ×2 (13:47→21:23)
--- NOTE | 2017-05-22 14:08 | General Surgery Progress Note ---
General Surgery-Progress Note Subjective Symptoms: improved Objective Last 24 Hour Vital Signs Date Time Temp Pulse Resp B/P Pulse Ox O2 Delivery O2 Flow Rate FiO2 05/22/17 12:00 97.7 87 20 148/86 94 Nasal Cannula 2.0 05/22/17 12:00 87 05/22/17 08:24 87 20 Nasal Cannula 2.0 28 05/22/17 08:24 Nasal Cannula 2.0 28 05/22/17 08:24 97 Nasal Cannula 2.0 28 05/22/17 08:00 97.3 81 20 156/86 98 Nasal Cannula 2.0 05/22/17 08:00 84 05/22/17 07:23 98.1 05/22/17 04:00 98.1 79 19 151/90 100 Nasal Cannula 2.0 05/22/17 03:34 80 05/22/17 00:00 69 05/22/17 00:00 98.0 77 19 149/70 98 Nasal Cannula 2.0 05/21/17 20:00 98.4 82 16 145/70 98 Nasal Cannula 2.0 05/21/17 20:00 72 05/21/17 19:14 71 20 Nasal Cannula 2.0 28 05/21/17 19:14 Nasal Cannula 2.0 28 05/21/17 19:14 97 Nasal Cannula 2.0 28 05/21/17 16:00 81 05/21/17 16:00 98.4 89 16 137/78 99 Nasal Cannula 2.0 I&O Intake and Output 05/21/17 05/22/17 19:00 07:00 Intake Total 1600 ml 1250 ml Output Total 1210 ml 1890 ml Balance 390 ml -640 ml IV Total 1600 ml 1250 ml Output Urine Total 1200 ml 1100 ml Gastric Drainage Total 700 ml Drainage Total 10 ml 90 ml Dressing: dry Drains: lizett Respiratory: clear Abdomen: soft, flat, non-tender, present bowel sounds Extremities: no tenderness Laboratory Tests Test 05/22/17 04:31 White Blood Count 9.8 K/UL (4.8-10.8) Red Blood Count 4.28 M/UL (4.70-6.10) L Hemoglobin 13.1 G/DL (14.2-18.0) L Hematocrit 41.5 % (42.0-52.0) L Mean Corpuscular Volume 97 FL (80-99) Mean Corpuscular Hemoglobin 30.6 PG (27.0-31.0) Mean Corpuscular Hemoglobin Concent 31.6 G/DL (32.0-36.0) L Red Cell Distribution Width 13.4 % (11.6-14.8) Platelet Count 380 K/UL (150-450) Mean Platelet Volume 6.1 FL (6.5-10.1) L Neutrophils (%) (Auto) 70.9 % (45.0-75.0) Lymphocytes (%) (Auto) 12.8 % (20.0-45.0) L Monocytes (%) (Auto) 7.7 % (1.0-10.0) Eosinophils (%) (Auto) 7.9 % (0.0-3.0) H Basophils (%) (Auto) 0.7 % (0.0-2.0) Sodium Level 147 mEQ/L (135-145) H Potassium Level 4.6 mEQ/L (3.4-4.9) Chloride Level 109 mEQ/L (98-107) H Carbon Dioxide Level 19 mEQ/L (20-30) L Anion Gap 19 (5-15) H Blood Urea Nitrogen 43 mg/dL (7-23) H Creatinine 1.6 mg/dL (0.7-1.2) #H Estimat Glomerular Filtration Rate 44.3 mL/min (>60) Glucose Level 78 mg/dL (74-106) Calcium Level 8.4 mg/dL (8.6-10.2) L Phosphorus Level 3.1 mg/dL (2.5-4.8) Magnesium Level 1.7 mg/dL (1.7-2.5) Assessment Post-op Diagnosis perforated sigmoid colon with intra-abdominal abscess & small bowel obstruction Plan Additional Comments continue as before FRED MILES May 22, 2017 14:08
--- NOTE | 2017-05-22 14:46 | Nephrology Progress Note ---
Assessment/Plan Problem List: (1) LALO (acute kidney injury) (2) Bowel obstruction (3) S/P Colectomy & Colostomy (4) Hypomagnesemia Assessment Plan prior oliguria improved, large amount ngt drainage prior, now decreased, creatinine downtrending, continue iv hydration and postop care, replace Mg Subjective Constitutional: Reports: weakness HEENT: Reports: no symptoms Genitourinary: Reports: no symptoms Neurologic/Psychiatric: Reports: no symptoms Objective Objective Last 24 Hour Vital Signs Date Time Temp Pulse Resp B/P Pulse Ox O2 Delivery O2 Flow Rate FiO2 05/22/17 12:00 97.7 87 20 148/86 94 Nasal Cannula 2.0 05/22/17 12:00 87 05/22/17 08:24 87 20 Nasal Cannula 2.0 28 05/22/17 08:24 Nasal Cannula 2.0 28 05/22/17 08:24 97 Nasal Cannula 2.0 28 05/22/17 08:00 97.3 81 20 156/86 98 Nasal Cannula 2.0 05/22/17 08:00 84 05/22/17 07:23 98.1 05/22/17 04:00 98.1 79 19 151/90 100 Nasal Cannula 2.0 05/22/17 03:34 80 05/22/17 00:00 69 05/22/17 00:00 98.0 77 19 149/70 98 Nasal Cannula 2.0 05/21/17 20:00 98.4 82 16 145/70 98 Nasal Cannula 2.0 05/21/17 20:00 72 05/21/17 19:14 71 20 Nasal Cannula 2.0 28 05/21/17 19:14 Nasal Cannula 2.0 28 05/21/17 19:14 97 Nasal Cannula 2.0 28 05/21/17 16:00 81 05/21/17 16:00 98.4 89 16 137/78 99 Nasal Cannula 2.0 Intake and Output 05/21/17 05/22/17 19:00 07:00 Intake Total 1600 ml 1250 ml Output Total 1210 ml 1890 ml Balance 390 ml -640 ml IV Total 1600 ml 1250 ml Output Urine Total 1200 ml 1100 ml Gastric Drainage Total 700 ml Drainage Total 10 ml 90 ml Laboratory Tests 05/22/17 04:31: White Blood Count 9.8, Red Blood Count 4.28L, Hemoglobin 13.1L, Hematocrit 41.5L , Mean Corpuscular Volume 97, Mean Corpuscular Hemoglobin 30.6, Mean Corpuscular Hemoglobin Concent 31.6L, Red Cell Distribution Width 13.4, Platelet Count 380, Mean Platelet Volume 6.1L, Neutrophils (%) (Auto) 70.9, Lymphocytes (%) (Auto) 12.8L, Monocytes (%) (Auto) 7.7, Eosinophils (%) (Auto) 7.9H, Basophils (%) (Auto) 0.7, Sodium Level 147H, Potassium Level 4.6, Chloride Level 109H, Carbon Dioxide Level 19L, Anion Gap 19H, Blood Urea Nitrogen 43H, Creatinine 1.6#H, Estimat Glomerular Filtration Rate 44.3, Glucose Level 78, Calcium Level 8.4L, Phosphorus Level 3.1, Magnesium Level 1.7 Height (Feet): 5 Height (Inches): 8.00 Weight (Pounds): 195 General Appearance: WD/WN, no apparent distress EENT: normal ENT inspection Neck: normal alignment Cardiovascular: normal rate, regular rhythm Respiratory/Chest: lungs clear, normal breath sounds Abdomen: soft, no organomegaly, other - ostomy Extremities: other - no edema Neurologic: lcsw II-XII grossly normal ALEE MCGEE May 22, 2017 14:46
[2017-05-22 16:00] VITALS: BP 144/92
[2017-05-22] MEDS ORDERED: Piperacillin/Tazobactam 3.375 GM in NS 110 ML IVPB SCH (18:00)
[2017-05-22 20:00] VITALS: BP 143/75
[2017-05-23] VITALS: BP 146/75
--- NOTE | 2017-05-23 03:15 | Progress Note ---
DATE: 05/22/2017 CARDIOLOGY AND INTERNAL MEDICINE PROGRESS SUBJECTIVE: The patient complains of abdominal pain. He has not had any gas passing. Colostomy bag is empty. He is on ice chips. PHYSICAL EXAMINATION: VITALS: Blood pressure 140/86, pulse 87, respiratory rate 20, and afebrile. NECK: Supple. LUNGS: Clear. CARDIAC: Regular. Normal S1, S2. No murmur. ABDOMEN: Distended. Colostomy bag dry. No guarding. Mild diffuse tenderness. Surgical incision clean. EXTREMITIES: With no cords or edema. LABORATORY DATA: White count 9.8 and hemoglobin 13.1. Sodium 147, potassium 4.6, bicarbonate 19, BUN 43, creatinine 1.6, and magnesium 1.7. IMPRESSION: 1. Status post bowel resection for ruptured diverticula with abscess and now with colostomy. 2. Acute renal failure, resolving. 3. Mild hypomagnesemia. 4. Dehydration. 5. Hypernatremia. PLAN: 1. Hypotonic IV fluids. 2. Antimicrobials. 3. Mobilize. 4. Continue to monitor renal parameters. 5. Await recovery of bowel function. 6. Pain control and paramedics as needed. 7. Await final pathology results. Rico Ramos M.D. DR: RODRI JOB#: [id number] CC:
[2017-05-23 04:00] VITALS: BP 141/79
[2017-05-23] MEDS: metroNIDAZOLE 500mg 100 ML IVPB SCH ×3 (05:12→21:40)
[2017-05-23] MEDS: Heparin 5000 units/ml inj SUBQ SCH ×3 (06:00→21:41)
[2017-05-23] MEDS: Piperacillin/Tazobactam 3.375 GM in NS 110 ML IVPB SCH (06:40)
[2017-05-23 07:48] LABS: BASOPHILS % (AUTO) 0.5 % (0.0-2.0); EOSINOPHILS % (AUTO) 6.1 % (0.0-3.0); LYMPHOCYTES % (AUTO) 10.1 % (20.0-45.0); MEAN CORPUSCULAR HGB CONC 32.3 G/DL (32.0-36.0); MEAN CORPUSCULAR VOLUME 96 FL (80-99); MEAN PLATELET VOLUME 6.9 FL (6.5-10.1); MONOCYTES % (AUTO) 8.8 % (1.0-10.0); NEUTROPHILS % (AUTO) 74.4 % (45.0-75.0); PLATELET COUNT 355 K/UL (150-450); RED BLOOD COUNT 3.91 M/UL (4.70-6.10); RED CELL DISTRIBUTION WIDTH 13.4 % (11.6-14.8); WHITE BLOOD COUNT 11.1 K/UL (4.8-10.8)
[2017-05-23 08:09] LABS: ANION GAP 13 (5-15); CALCIUM 8.1 mg/dL (8.6-10.2); CARBON DIOXIDE 21 mEQ/L (20-30); CHLORIDE 107 mEQ/L (98-107); GLOMERULAR FILTRATION RATE > 60 mL/min (>60); HEMOLYSIS 7; POTASSIUM 3.7 mEQ/L (3.4-4.9); SODIUM 141 mEQ/L (135-145)
[2017-05-23 08:45] VITALS: BP 141/78
[2017-05-23] MEDS: Pantoprazole Inj IVP SCH (08:53)
[2017-05-23 12:36] VITALS: BP 137/86
--- NOTE | 2017-05-23 12:53 | General Surgery Progress Note ---
General Surgery-Progress Note Subjective Symptoms: improved Objective Last 24 Hour Vital Signs Date Time Temp Pulse Resp B/P Pulse Ox O2 Delivery O2 Flow Rate FiO2 05/23/17 12:36 99.0 66 20 137/86 98 Room Air 05/23/17 08:45 99.1 68 20 141/78 96 Room Air 05/23/17 08:00 76 05/23/17 04:00 82 05/23/17 04:00 98.0 80 20 141/79 95 Nasal Cannula 2.0 05/23/17 00:00 72 05/23/17 00:00 98.1 60 24 146/75 98 Nasal Cannula 2.0 05/23/17 00:00 98.1 60 24 98 05/22/17 20:00 83 05/22/17 20:00 98.1 78 20 143/75 99 Nasal Cannula 2.0 05/22/17 19:20 82 20 Nasal Cannula 2.0 28 05/22/17 19:20 Nasal Cannula 2.0 28 05/22/17 19:20 96 Nasal Cannula 2.0 28 05/22/17 16:00 76 05/22/17 16:00 97.9 87 22 144/92 92 I&O Intake and Output 05/22/17 05/23/17 19:00 07:00 Intake Total 2090.8 ml 1854.7 ml Output Total 1880 ml 2200 ml Balance 210.8 ml -345.3 ml Intake Oral 120 ml IV Total 2090.8 ml 1734.7 ml Output Urine Total 1800 ml 2000 ml Gastric Drainage Total 100 ml Drainage Total 80 ml 100 ml # Bowel Movements 2 Dressing: dry Drains: lizett Respiratory: clear Abdomen: soft, distended, tenderness, present bowel sounds Extremities: no tenderness Laboratory Tests Test 05/23/17 07:05 White Blood Count 11.1 K/UL (4.8-10.8) H Red Blood Count 3.91 M/UL (4.70-6.10) L Hemoglobin 12.1 G/DL (14.2-18.0) L Hematocrit 37.5 % (42.0-52.0) L Mean Corpuscular Volume 96 FL (80-99) Mean Corpuscular Hemoglobin 31.0 PG (27.0-31.0) Mean Corpuscular Hemoglobin Concent 32.3 G/DL (32.0-36.0) Red Cell Distribution Width 13.4 % (11.6-14.8) Platelet Count 355 K/UL (150-450) Mean Platelet Volume 6.9 FL (6.5-10.1) Neutrophils (%) (Auto) 74.4 % (45.0-75.0) Lymphocytes (%) (Auto) 10.1 % (20.0-45.0) L Monocytes (%) (Auto) 8.8 % (1.0-10.0) Eosinophils (%) (Auto) 6.1 % (0.0-3.0) H Basophils (%) (Auto) 0.5 % (0.0-2.0) Sodium Level 141 mEQ/L (135-145) Potassium Level 3.7 mEQ/L (3.4-4.9) Chloride Level 107 mEQ/L (98-107) Carbon Dioxide Level 21 mEQ/L (20-30) Anion Gap 13 (5-15) Blood Urea Nitrogen 25 mg/dL (7-23) H Creatinine 1.0 mg/dL (0.7-1.2) Estimat Glomerular Filtration Rate > 60 mL/min (>60) Glucose Level 111 mg/dL (74-106) H Calcium Level 8.1 mg/dL (8.6-10.2) L Assessment Post-op Diagnosis perforated sigmoid colon with intra-abdominal abscess & small bowel obstruction Plan Additional Comments continue IV Antibiotics FRED MILES May 23, 2017 12:53
[2017-05-23 15:50] VITALS: BP 152/88
[2017-05-23] MEDS ORDERED: 1/2 NS 1000ml IV ONE (16:19)
--- NOTE | 2017-05-23 17:11 | Nephrology Progress Note ---
Assessment/Plan Problem List: (1) LALO (acute kidney injury) (2) Bowel obstruction (3) S/P Colectomy & Colostomy (4) Hypomagnesemia Assessment Plan prior oliguria improved, large amount ngt drainage prior, now decreased, creatinine downtrending, continue iv hydration and postop care, reduce iv rate, malin out replace Mg Subjective Constitutional: Reports: weakness HEENT: Reports: no symptoms Genitourinary: Reports: no symptoms Neurologic/Psychiatric: Reports: no symptoms Objective Objective Last 24 Hour Vital Signs Date Time Temp Pulse Resp B/P Pulse Ox O2 Delivery O2 Flow Rate FiO2 05/23/17 15:50 97.5 85 20 152/88 98 Room Air 05/23/17 12:36 99.0 66 20 137/86 98 Room Air 05/23/17 08:45 99.1 68 20 141/78 96 Room Air 05/23/17 08:00 76 05/23/17 04:00 82 05/23/17 04:00 98.0 80 20 141/79 95 Nasal Cannula 2.0 05/23/17 00:00 72 05/23/17 00:00 98.1 60 24 146/75 98 Nasal Cannula 2.0 05/23/17 00:00 98.1 60 24 98 05/22/17 20:00 83 05/22/17 20:00 98.1 78 20 143/75 99 Nasal Cannula 2.0 05/22/17 19:20 82 20 Nasal Cannula 2.0 28 05/22/17 19:20 Nasal Cannula 2.0 28 05/22/17 19:20 96 Nasal Cannula 2.0 28 Intake and Output 05/22/17 05/23/17 19:00 07:00 Intake Total 2090.8 ml 1854.7 ml Output Total 1880 ml 2200 ml Balance 210.8 ml -345.3 ml Intake Oral 120 ml IV Total 2090.8 ml 1734.7 ml Output Urine Total 1800 ml 2000 ml Gastric Drainage Total 100 ml Drainage Total 80 ml 100 ml # Bowel Movements 2 Laboratory Tests 05/23/17 07:05: White Blood Count 11.1H, Red Blood Count 3.91L, Hemoglobin 12.1L, Hematocrit 37.5L, Mean Corpuscular Volume 96, Mean Corpuscular Hemoglobin 31.0, Mean Corpuscular Hemoglobin Concent 32.3, Red Cell Distribution Width 13.4, Platelet Count 355, Mean Platelet Volume 6.9, Neutrophils (%) (Auto) 74.4, Lymphocytes (% ) (Auto) 10.1L, Monocytes (%) (Auto) 8.8, Eosinophils (%) (Auto) 6.1H, Basophils (%) (Auto) 0.5, Sodium Level 141, Potassium Level 3.7, Chloride Level 107, Carbon Dioxide Level 21, Anion Gap 13, Blood Urea Nitrogen 25H, Creatinine 1.0, Estimat Glomerular Filtration Rate > 60, Glucose Level 111H, Calcium Level 8.1L Height (Feet): 5 Height (Inches): 8.00 Weight (Pounds): 200 General Appearance: WD/WN, no apparent distress, alert EENT: normal ENT inspection Neck: normal alignment Cardiovascular: normal rate, regular rhythm Respiratory/Chest: lungs clear Abdomen: non tender, other - ostomy 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
[2017-05-23] MEDS: D5 1/2NS w/KCl 40meq 1000ml 1,000 ML IV SCH (18:48)
[2017-05-23 20:00] VITALS: BP 150/95
[2017-05-24] VITALS: BP 156/59
[2017-05-24] MEDS: HYDROmorphone 1mg/ml Carpuject IVP PRN ×4 (01:22→20:05)
[2017-05-24 04:00] VITALS: BP 155/77
[2017-05-24] MEDS: metroNIDAZOLE 500mg 100 ML IVPB SCH ×3 (06:02→21:08)
[2017-05-24] MEDS: Heparin 5000 units/ml inj SUBQ SCH ×3 (06:03→21:09)
[2017-05-24 06:31] LABS: BASOPHILS % (AUTO) 0.6 % (0.0-2.0); EOSINOPHILS % (AUTO) 6.2 % (0.0-3.0); LYMPHOCYTES % (AUTO) 11.1 % (20.0-45.0); MEAN CORPUSCULAR HEMOGLOBIN 31.1 PG (27.0-31.0); MEAN CORPUSCULAR HGB CONC 32.5 G/DL (32.0-36.0); MEAN CORPUSCULAR VOLUME 96 FL (80-99); MEAN PLATELET VOLUME 6.8 FL (6.5-10.1); MONOCYTES % (AUTO) 8.5 % (1.0-10.0); NEUTROPHILS % (AUTO) 73.7 % (45.0-75.0); PLATELET COUNT 398 K/UL (150-450); RED BLOOD COUNT 4.16 M/UL (4.70-6.10); RED CELL DISTRIBUTION WIDTH 13.3 % (11.6-14.8)
[2017-05-24 07:20] LABS: ANION GAP 14 (5-15); CALCIUM 8.5 mg/dL (8.6-10.2); CARBON DIOXIDE 23 mEQ/L (20-30); CHLORIDE 105 mEQ/L (98-107); CREATININE 0.7 mg/dL (0.7-1.2); GLOMERULAR FILTRATION RATE > 60 mL/min (>60); HEMOLYSIS 1; POTASSIUM 3.8 mEQ/L (3.4-4.9); SODIUM 142 mEQ/L (135-145)
[2017-05-24 08:00] VITALS: BP 138/75
[2017-05-24] MEDS: D5 1/2NS w/KCl 40meq 1000ml 1,000 ML IV SCH ×2 (08:09→21:08)
[2017-05-24] MEDS: Pantoprazole Inj IVP SCH (08:11)
[2017-05-24 12:00] VITALS: BP 139/84
--- NOTE | 2017-05-24 12:38 | General Surgery Progress Note ---
General Surgery-Progress Note Subjective Symptoms: improved, BM Objective Last 24 Hour Vital Signs Date Time Temp Pulse Resp B/P Pulse Ox O2 Delivery O2 Flow Rate FiO2 05/24/17 08:00 97.5 77 19 138/75 97 Simple Mask 05/24/17 07:57 74 05/24/17 04:00 97.3 62 20 155/77 98 Room Air 2.0 28 05/24/17 04:00 66 05/24/17 00:00 75 05/24/17 00:00 97.5 76 20 156/59 98 Room Air 2.0 28 05/23/17 20:00 97.9 80 20 150/95 98 Room Air 2.0 28 05/23/17 20:00 77 05/23/17 19:30 Nasal Cannula 2.0 28 05/23/17 19:30 94 Nasal Cannula 2.0 28 05/23/17 19:30 80 20 Nasal Cannula 2.0 28 05/23/17 16:00 83 05/23/17 15:50 97.5 85 20 152/88 98 Room Air I&O Intake and Output 05/23/17 05/24/17 19:00 07:00 Intake Total 195 ml 975 ml Output Total 2550 ml 1200 ml Balance -2355 ml -225 ml Intake Oral 120 ml IV Total 75 ml 975 ml Output Urine Total 2200 ml 1200 ml Stool Total 0 ml Gastric Drainage Total 250 ml Drainage Total 100 ml # Voids 3 # Bowel Movements 1 1 Wound: clean, intact Drains: lizett Respiratory: clear Abdomen: soft, non-tender, present bowel sounds Extremities: no tenderness Laboratory Tests Test 05/24/17 04:55 White Blood Count 15.0 K/UL (4.8-10.8) H Red Blood Count 4.16 M/UL (4.70-6.10) L Hemoglobin 12.9 G/DL (14.2-18.0) L Hematocrit 39.8 % (42.0-52.0) L Mean Corpuscular Volume 96 FL (80-99) Mean Corpuscular Hemoglobin 31.1 PG (27.0-31.0) H Mean Corpuscular Hemoglobin Concent 32.5 G/DL (32.0-36.0) Red Cell Distribution Width 13.3 % (11.6-14.8) Platelet Count 398 K/UL (150-450) Mean Platelet Volume 6.8 FL (6.5-10.1) Neutrophils (%) (Auto) 73.7 % (45.0-75.0) Lymphocytes (%) (Auto) 11.1 % (20.0-45.0) L Monocytes (%) (Auto) 8.5 % (1.0-10.0) Eosinophils (%) (Auto) 6.2 % (0.0-3.0) H Basophils (%) (Auto) 0.6 % (0.0-2.0) Sodium Level 142 mEQ/L (135-145) Potassium Level 3.8 mEQ/L (3.4-4.9) Chloride Level 105 mEQ/L (98-107) Carbon Dioxide Level 23 mEQ/L (20-30) Anion Gap 14 (5-15) Blood Urea Nitrogen 19 mg/dL (7-23) Creatinine 0.7 mg/dL (0.7-1.2) Estimat Glomerular Filtration Rate > 60 mL/min (>60) Glucose Level 133 mg/dL (74-106) H Calcium Level 8.5 mg/dL (8.6-10.2) L Magnesium Level 1.5 mg/dL (1.7-2.5) L Assessment Post-op Diagnosis perforated sigmoid colon with intra-abdominal abscess & small bowel obstruction Plan Additional Comments FRED Parker May 24, 2017 12:38
[2017-05-24 16:00] VITALS: BP 153/85
[2017-05-24 20:00] VITALS: BP 144/56
[2017-05-25] VITALS: BP 148/88
[2017-05-25] MEDS: HYDROmorphone 1mg/ml Carpuject IVP PRN ×3 (00:19→08:44)
[2017-05-25 04:00] VITALS: BP 127/80
[2017-05-25] MEDS: metroNIDAZOLE 500mg 100 ML IVPB SCH (05:32)
[2017-05-25] MEDS: Heparin 5000 units/ml inj SUBQ SCH ×3 (05:33→21:05)
[2017-05-25 06:30] LABS: APPEARANCE,URINE CLEAR; KETONES,URINE NEGATIVE (NEGATIVE); LEUKOCYTE ESTERASE ,URINE 1+ (NEGATIVE); NITRITE,URINE NEGATIVE (NEGATIVE); PH,URINE 6 (4.5-8.0); PROTEIN,URINE 1+ (NEGATIVE); UROBILINOGEN,URINE NORMAL MG/DL (0.0-1.0)
[2017-05-25 06:42] LABS: BACTERIA,URINE FEW /HPF; SQUAMOUS EPITHELIAL CELL,UR OCCASIONAL /LPF (NONE/OCC)
[2017-05-25 07:58] LABS: BASOPHILS % (AUTO) 0.4 % (0.0-2.0); EOSINOPHILS % (AUTO) 7.6 % (0.0-3.0); LYMPHOCYTES % (AUTO) 13.5 % (20.0-45.0); MEAN CORPUSCULAR HGB CONC 32.5 G/DL (32.0-36.0); MEAN CORPUSCULAR VOLUME 95 FL (80-99); MONOCYTES % (AUTO) 7.3 % (1.0-10.0); NEUTROPHILS % (AUTO) 71.2 % (45.0-75.0); PLATELET COUNT 351 K/UL (150-450); RED BLOOD COUNT 4.26 M/UL (4.70-6.10); WHITE BLOOD COUNT 13.5 K/UL (4.8-10.8)
[2017-05-25 08:03] VITALS: BP 129/75
[2017-05-25] MEDS: Pantoprazole Inj IVP SCH (08:43)
[2017-05-25] MEDS: D5 1/2NS w/KCl 40meq 1000ml 1,000 ML IV SCH (10:35)
[2017-05-25 11:27] VITALS: BP 148/82
[2017-05-25] MEDS ORDERED: metroNIDAZOLE 500mg 100 ML IVPB SCH (14:30)
--- NOTE | 2017-05-25 14:36 | Nephrology Progress Note ---
Assessment/Plan Problem List: (1) LALO (acute kidney injury) (2) Bowel obstruction (3) S/P Colectomy & Colostomy (4) Hypomagnesemia Assessment Plan prior oliguria improved, large amount ngt drainage prior, now decreased, creatinine downtrending, continue iv hydration and postop care, reduce iv rate, malin out, lalo resolved Subjective HEENT: Reports: no symptoms Genitourinary: Reports: no symptoms Neurologic/Psychiatric: Reports: no symptoms Subjective feels better. ng and malin removed Objective Objective Last 24 Hour Vital Signs Date Time Temp Pulse Resp B/P Pulse Ox O2 Delivery O2 Flow Rate FiO2 05/25/17 11:27 97.1 67 20 148/82 98 Nasal Cannula 2.0 05/25/17 08:03 97.3 59 20 129/75 97 Nasal Cannula 2.0 05/25/17 08:00 61 05/25/17 04:00 97.9 62 20 127/80 100 Room Air 2.0 21 05/25/17 04:00 61 05/25/17 00:00 62 05/25/17 00:00 97.9 62 20 148/88 97 Room Air 2.0 21 05/24/17 20:18 95 Room Air 21 05/24/17 20:18 Room Air 05/24/17 20:17 72 18 Room Air 21 05/24/17 20:00 76 05/24/17 20:00 98.4 70 20 144/56 95 Room Air 2.0 28 05/24/17 16:00 97.7 69 19 153/85 Room Air 05/24/17 16:00 72 Intake and Output 05/24/17 05/25/17 19:00 07:00 Intake Total 1013.75 ml 1207.5 ml Output Total 290 ml 920 ml Balance 723.75 ml 287.5 ml Intake Oral 220 ml IV Total 1013.75 ml 987.5 ml Output Urine Total 100 ml 750 ml Drainage Total 190 ml 170 ml # Voids 4 # Bowel Movements 1 100 Laboratory Tests 05/25/17 04:45: Urine Color Yellow, Urine Appearance Clear, Urine pH 6, Urine Specific [place] 1.010, Urine Protein 1+H, Urine Glucose (UA) 1+H, Urine Ketones Negative, Urine Occult Blood 2+H, Urine Nitrite Negative, Urine Bilirubin Negative, Urine Urobilinogen Normal, Urine Leukocyte Esterase 1+H, Urine RBC 5-10H, Urine WBC 2- 4, Urine Squamous Epithelial Cells Occasional, Urine Bacteria Few 05/25/17 07:05: White Blood Count 13.5H, Red Blood Count 4.26L, Hemoglobin 13.2L, Hematocrit 40.5L, Mean Corpuscular Volume 95, Mean Corpuscular Hemoglobin 31.0, Mean Corpuscular Hemoglobin Concent 32.5, Red Cell Distribution Width 13.0, Platelet Count 351, Mean Platelet Volume 7.0, Neutrophils (%) (Auto) 71.2, Lymphocytes (% ) (Auto) 13.5L, Monocytes (%) (Auto) 7.3, Eosinophils (%) (Auto) 7.6H, Basophils (%) (Auto) 0.4 Height (Feet): 5 Height (Inches): 8.00 Weight (Pounds): 212 General Appearance: no apparent distress, alert EENT: normal ENT inspection Neck: normal alignment Cardiovascular: normal rate, regular rhythm Respiratory/Chest: lungs clear Abdomen: non tender, other - ostomy Neurologic: integrity assessor II-XII grossly normal ALEE MCGEE May 25, 2017 14:36
[2017-05-25] MEDS ORDERED: D5 1/2NS w/KCl 40meq 1000ml 1,000 ML IV SCH ×2 (15:00)
[2017-05-25 16:00] VITALS: BP 150/96
[2017-05-25] MEDS ORDERED: HYDROmorphone 1mg/ml Carpuject IVP PRN (16:00)
[2017-05-25] MEDS ORDERED: Acetaminophen 650 MG SUPP RECTAL PRN (17:00)
--- NOTE | 2017-05-25 18:21 | General Surgery Progress Note ---
General Surgery-Progress Note Subjective Symptoms: improved, BM Objective Last 24 Hour Vital Signs Date Time Temp Pulse Resp B/P Pulse Ox O2 Delivery O2 Flow Rate FiO2 05/25/17 16:00 97.7 72 18 150/96 98 Room Air 05/25/17 11:27 97.1 67 20 148/82 98 Nasal Cannula 2.0 05/25/17 08:03 97.3 59 20 129/75 97 Nasal Cannula 2.0 05/25/17 08:00 61 05/25/17 04:00 97.9 62 20 127/80 100 Room Air 2.0 21 05/25/17 04:00 61 05/25/17 00:00 62 05/25/17 00:00 97.9 62 20 148/88 97 Room Air 2.0 21 05/24/17 20:18 95 Room Air 21 05/24/17 20:18 Room Air 05/24/17 20:17 72 18 Room Air 21 05/24/17 20:00 76 05/24/17 20:00 98.4 70 20 144/56 95 Room Air 2.0 28 I&O Intake and Output 05/24/17 05/25/17 19:00 07:00 Intake Total 1013.75 ml 1207.5 ml Output Total 290 ml 920 ml Balance 723.75 ml 287.5 ml Intake Oral 220 ml IV Total 1013.75 ml 987.5 ml Output Urine Total 100 ml 750 ml Drainage Total 190 ml 170 ml # Voids 4 # Bowel Movements 1 100 Wound: clean, intact Drains: liz[place] Respiratory: clear Abdomen: soft, non-tender, present bowel sounds Extremities: no tenderness Laboratory Tests Test 05/25/17 04:45 05/25/17 07:05 Urine Color Yellow Urine Appearance Clear Urine pH 6 (4.5-8.0) Urine Specific [place] 1.010 (1.005-1.035) Urine Protein 1+ (NEGATIVE) H Urine Glucose (UA) 1+ (NEGATIVE) H Urine Ketones Negative (NEGATIVE) Urine Occult Blood 2+ (NEGATIVE) H Urine Nitrite Negative (NEGATIVE) Urine Bilirubin Negative (NEGATIVE) Urine Urobilinogen Normal MG/DL (0.0-1.0) Urine Leukocyte Esterase 1+ (NEGATIVE) H Urine RBC 5-10 /HPF (0 - 0) H Urine WBC 2-4 /HPF (0 - 0) Urine Squamous Epithelial Cells Occasional /LPF Urine Bacteria Few /HPF (NONE) White Blood Count 13.5 K/UL (4.8-10.8) H Red Blood Count 4.26 M/UL (4.70-6.10) L Hemoglobin 13.2 G/DL (14.2-18.0) L Hematocrit 40.5 % (42.0-52.0) L Mean Corpuscular Volume 95 FL (80-99) Mean Corpuscular Hemoglobin 31.0 PG (27.0-31.0) Mean Corpuscular Hemoglobin Concent 32.5 G/DL (32.0-36.0) Red Cell Distribution Width 13.0 % (11.6-14.8) Platelet Count 351 K/UL (150-450) Mean Platelet Volume 7.0 FL (6.5-10.1) Neutrophils (%) (Auto) 71.2 % (45.0-75.0) Lymphocytes (%) (Auto) 13.5 % (20.0-45.0) L Monocytes (%) (Auto) 7.3 % (1.0-10.0) Eosinophils (%) (Auto) 7.6 % (0.0-3.0) H Basophils (%) (Auto) 0.4 % (0.0-2.0) Assessment Post-op Diagnosis perforated sigmoid colon with intra-abdominal abscess & small bowel obstruction Plan Additional Comments FRED Parker May 25, 2017 18:21
[2017-05-25] MEDS ORDERED: Pericolace tab ORAL PRN (18:30)
[2017-05-25 20:00] VITALS: BP 145/91
[2017-05-25] MEDS: Hydromorphone 0.5mg/0.5ml inj IVP PRN (21:03)
--- NOTE | 2017-05-25 21:40 | Progress Note ---
DATE: 05/23/2017 INTERNAL MEDICINE PROGRESS NOTE SUBJECTIVE: The patient is remaining on NPO status following abdominal surgery. He has low-grade temperatures. OBJECTIVE: VITAL SIGNS: Stable. Blood pressure 141/78, pulse 68, and respirations 20. NECK: Supple. LUNGS: Clear. CARDIAC: Regular rhythm and rate. Normal S1 and S2. ABDOMEN: Distended. Colostomy in place. Mild tenderness. EXTREMITIES: No edema. LABORATORY DATA: White count 11 and hemoglobin 12. Potassium 3.7, BUN 25, and creatinine 1. IMPRESSIONS: 1. Status post perforated sigmoid colon with intra-abdominal abscess and small bowel obstruction due to diverticulosis. 2. Acute renal failure, recovered. 3. Postoperative anemia. 4. Protein-calorie malnutrition. 5. Hypertension. PLAN: 1. Antibiotics IV. 2. NPO status. 3. IV fluid hydration. 4. DVT prophylaxis. 5. Mobilization. 6. Advance diet per surgeon. Rico Ramos M.D. DR: JAVON JOB#: [id number] CC:
--- NOTE | 2017-05-25 21:40 | Progress Note ---
DATE: 05/24/2017 INTERNAL MEDICINE PROGRESS NOTE SUBJECTIVE: The patient is started on clear liquid diet. He is passing gas. OBJECTIVE: VITAL SIGNS: Stable. He is afebrile. T-max is 99.1. NECK: Supple. LUNGS: Clear. ABDOMEN: Soft. Surgical site is clean. Colostomy with a small amount of feces. EXTREMITIES: Without edema. LABORATORY DATA: White count 15 and hemoglobin 12.9. Magnesium is 1.5. Potassium 3.8, BUN 19, and creatinine 0.7. IMPRESSION: 1. White count has increased. 2. Clinical signs of acute infection are not present. 3. Acute renal failure has resolved. 4. The patient is status post colon resection for ruptured diverticular abscess with obstruction and ileus. 5. Pathology is positive for diverticular process. 6. No malignancy. PLAN: 1. IV magnesium. 2. Advance diet per surgeon. 3. Continue antibiotics. 4. Follow up white blood count. 5. Mobilize. 6. Check urine studies. Rico Ramos M.D. DR: JAVON JOB#: [id number] CC:
[2017-05-26] VITALS: BP 139/87
[2017-05-26] MEDS: Hydromorphone 0.5mg/0.5ml inj IVP PRN ×6 (01:15→20:43)
[2017-05-26 04:00] VITALS: BP 130/81
[2017-05-26] MEDS: Heparin 5000 units/ml inj SUBQ SCH ×3 (06:00→20:46)
[2017-05-26 07:04] LABS: BASOPHILS % (AUTO) 0.4 % (0.0-2.0); EOSINOPHILS % (AUTO) 6.8 % (0.0-3.0); LYMPHOCYTES % (AUTO) 17.8 % (20.0-45.0); MEAN CORPUSCULAR HEMOGLOBIN 30.6 PG (27.0-31.0); MEAN CORPUSCULAR VOLUME 96 FL (80-99); MEAN PLATELET VOLUME 7.1 FL (6.5-10.1); MONOCYTES % (AUTO) 6.5 % (1.0-10.0); NEUTROPHILS % (AUTO) 68.5 % (45.0-75.0); PLATELET COUNT 409 K/UL (150-450); RED CELL DISTRIBUTION WIDTH 13.3 % (11.6-14.8)
[2017-05-26 07:28] LABS: ALANINE AMINOTRANSFERASE 12 U/L (3-41); ALBUMIN/GLOBULIN RATIO 0.8 (1.0-2.7); ANION GAP 7 (5-15); ASPARTATE AMINO TRANSFERASE 21 U/L (5-40); CALCIUM 8.2 mg/dL (8.6-10.2); CARBON DIOXIDE 28 mEQ/L (20-30); CHLORIDE 101 mEQ/L (98-107); CREATININE 0.8 mg/dL (0.7-1.2); GLOMERULAR FILTRATION RATE > 60 mL/min (>60); HEMOLYSIS 4; POTASSIUM 4.3 mEQ/L (3.4-4.9); SODIUM 136 mEQ/L (135-145); TOTAL PROTEIN 4.9 g/dL (6.6-8.7)
[2017-05-26 08:26] VITALS: BP 147/90
[2017-05-26] MEDS: Pericolace tab ORAL SCH ×2 (08:56→17:18)
[2017-05-26] MEDS ORDERED: Pantoprazole Inj IVP SCH (09:00)
[2017-05-26 12:32] VITALS: BP 139/89
[2017-05-26 16:00] VITALS: BP 144/87
--- NOTE | 2017-05-26 17:15 | General Surgery Progress Note ---
General Surgery-Progress Note Subjective Symptoms: improved, BM Objective Last 24 Hour Vital Signs Date Time Temp Pulse Resp B/P Pulse Ox O2 Delivery O2 Flow Rate FiO2 05/26/17 12:32 97.7 69 18 139/89 98 Room Air 05/26/17 08:26 97.9 71 18 147/90 99 Room Air 05/26/17 04:00 97.2 70 16 130/81 96 Room Air 05/26/17 00:00 97.6 64 19 139/87 94 Room Air 05/25/17 20:00 97.9 70 16 145/91 98 Nasal Cannula 05/25/17 19:35 Nasal Cannula 2.0 28 05/25/17 19:33 98 Nasal Cannula 2.0 28 I&O Intake and Output 05/25/17 05/26/17 19:00 07:00 Intake Total 1265 ml Output Total 990 ml 990 ml Balance 275 ml -990 ml Intake Oral 940 ml IV Total 325 ml Output Urine Total 550 ml 700 ml Drainage Total 440 ml 290 ml # Voids 4 3 # Bowel Movements 1 Wound: clean, intact Drains: none Respiratory: clear Abdomen: soft, flat, non-tender, present bowel sounds Extremities: no tenderness Laboratory Tests Test 05/26/17 05:25 White Blood Count 14.0 K/UL (4.8-10.8) H Red Blood Count 4.50 M/UL (4.70-6.10) L Hemoglobin 13.8 G/DL (14.2-18.0) L Hematocrit 43.1 % (42.0-52.0) Mean Corpuscular Volume 96 FL (80-99) Mean Corpuscular Hemoglobin 30.6 PG (27.0-31.0) Mean Corpuscular Hemoglobin Concent 32.0 G/DL (32.0-36.0) Red Cell Distribution Width 13.3 % (11.6-14.8) Platelet Count 409 K/UL (150-450) Mean Platelet Volume 7.1 FL (6.5-10.1) Neutrophils (%) (Auto) 68.5 % (45.0-75.0) Lymphocytes (%) (Auto) 17.8 % (20.0-45.0) L Monocytes (%) (Auto) 6.5 % (1.0-10.0) Eosinophils (%) (Auto) 6.8 % (0.0-3.0) H Basophils (%) (Auto) 0.4 % (0.0-2.0) Sodium Level 136 mEQ/L (135-145) Potassium Level 4.3 mEQ/L (3.4-4.9) Chloride Level 101 mEQ/L (98-107) Carbon Dioxide Level 28 mEQ/L (20-30) Anion Gap 7 (5-15) Blood Urea Nitrogen 9 mg/dL (7-23) Creatinine 0.8 mg/dL (0.7-1.2) Estimat Glomerular Filtration Rate > 60 mL/min (>60) Glucose Level 107 mg/dL (74-106) H Calcium Level 8.2 mg/dL (8.6-10.2) L Total Bilirubin 0.4 mg/dL (0.0-1.2) Aspartate Amino Transf (AST/SGOT) 21 U/L (5-40) Alanine Aminotransferase (ALT/SGPT) 12 U/L (3-41) Alkaline Phosphatase 47 U/L (40-129) Total Protein 4.9 g/dL (6.6-8.7) L Albumin 2.3 g/dL (3.5-5.2) L Globulin 2.6 g/dL Albumin/Globulin Ratio 0.8 (1.0-2.7) L Assessment Post-op Diagnosis perforated sigmoid colon with intra-abdominal abscess & small bowel obstruction Plan Additional Comments WBC is 14K , I ordered CAT scan if it was normal he can be discharged home FRED MILES May 26, 2017 17:15
[2017-05-26 20:00] VITALS: BP 131/84
[2017-05-27] VITALS: BP 169/92
[2017-05-27] MEDS: Hydromorphone 0.5mg/0.5ml inj IVP PRN ×5 (02:04→20:41)
[2017-05-27 03:51] VITALS: BP 134/78
--- NOTE | 2017-05-27 04:28 | Progress Note ---
DATE: 05/26/2017 INTERNAL MEDICINE PROGRESS NOTE SUBJECTIVE: The patient has no nausea or vomiting. Abdominal pain has improved. He had a breakfast and lunch, but could not eat dinner due to fullness of the abdomen. There is stool in colostomy bag. OBJECTIVE: VITAL SIGNS: Stable. LUNGS: Clear. CARDIAC: Regular. ABDOMEN: Soft. EXTREMITIES: No edema. LABORATORY DATA: White count is 14, which is slightly higher from yesterday. ASSESSMENT AND PLAN: Plan is for a CAT scan of the abdomen. Continued current therapy including Levaquin based on cultures from surgical specimen. Further recommendations will follow once the imaging results are reviewed. Possible discharge plan to follow thereafter. Rico Ramos M.D. DR: JAVON JOB#: [id number] CC:
[2017-05-27] MEDS: Heparin 5000 units/ml inj SUBQ SCH ×3 (06:00→20:43)
[2017-05-27 06:15] LABS: BASOPHILS % (AUTO) 0.5 % (0.0-2.0); EOSINOPHILS % (AUTO) 5.6 % (0.0-3.0); LYMPHOCYTES % (AUTO) 15.5 % (20.0-45.0); MEAN CORPUSCULAR HEMOGLOBIN 30.7 PG (27.0-31.0); MEAN CORPUSCULAR HGB CONC 31.9 G/DL (32.0-36.0); MEAN CORPUSCULAR VOLUME 96 FL (80-99); MEAN PLATELET VOLUME 7.1 FL (6.5-10.1); MONOCYTES % (AUTO) 6.7 % (1.0-10.0); NEUTROPHILS % (AUTO) 71.7 % (45.0-75.0); PLATELET COUNT 414 K/UL (150-450); RED BLOOD COUNT 4.15 M/UL (4.70-6.10); RED CELL DISTRIBUTION WIDTH 13.4 % (11.6-14.8); WHITE BLOOD COUNT 12.8 K/UL (4.8-10.8)
--- NOTE | 2017-05-27 06:15 | Progress Note ---
DATE: 05/25/2017 LATE ENTRY INTERNAL MEDICINE PROGRESS NOTE: SUBJECTIVE: The patient has no nausea or vomiting. Tolerating liquid. Slight abdominal discomfort and fullness. Positive stool in colostomy bag. OBJECTIVE: VITAL SIGNS: Blood pressure is 145/91, pulse 70, respirations 16, and no fevers. Room air oxygen saturation 94%. ABDOMEN: Soft. Colostomy area is without erythema and surgical sites are clean. LABORATORY DATA: White count is 13.5 and hemoglobin 13.2. Magnesium yesterday was 1.5. IMPRESSION: 1. Postoperative ileus, status post diverticular abscess with obstruction and colon resection. 2. Hypomagnesemia. 3. Hypertension. 4. Severe protein-calorie malnutrition. PLAN: 1. Advance diet per surgeon. 2. Monitor for improved white count. 3. Continue antibiotics. 4. Intravenous magnesium. 5. Protein supplement as bowel function recovers further. 6. Colostomy teaching care to be initiated. 7. Titrate antihypertensive medications as needed. Rico Ramos M.D. : [place] JOB#: [id number] CC:
[2017-05-27 06:48] LABS: ANION GAP 14 (5-15); CALCIUM 8.4 mg/dL (8.6-10.2); CARBON DIOXIDE 26 mEQ/L (20-30); CHLORIDE 101 mEQ/L (98-107); CREATININE 0.7 mg/dL (0.7-1.2); GLOMERULAR FILTRATION RATE > 60 mL/min (>60); HEMOLYSIS 4; POTASSIUM 4.6 mEQ/L (3.4-4.9); SODIUM 141 mEQ/L (135-145)
[2017-05-27 08:00] VITALS: BP 123/69
[2017-05-27] MEDS: Pericolace tab ORAL SCH ×2 (09:23→19:10)
[2017-05-27 12:00] VITALS: BP 153/95
--- NOTE | 2017-05-27 14:56 | General Surgery Progress Note ---
General Surgery-Progress Note Subjective Symptoms: improved, BM Objective Last 24 Hour Vital Signs Date Time Temp Pulse Resp B/P Pulse Ox O2 Delivery O2 Flow Rate FiO2 05/27/17 12:00 97.7 81 20 153/95 98 Room Air 05/27/17 10:16 97.5 05/27/17 08:00 97.5 70 20 123/69 93 Room Air 05/27/17 03:51 97.2 73 20 134/78 94 Room Air 05/27/17 00:00 97.7 78 18 169/92 97 Room Air 05/26/17 20:24 Room Air 05/26/17 20:24 95 Room Air 05/26/17 20:00 97.9 80 18 131/84 95 Room Air 05/26/17 16:00 97.9 63 18 144/87 95 Room Air I&O Intake and Output 05/26/17 05/27/17 19:00 07:00 Output Total 110 ml 800 ml Balance -110 ml -800 ml Output Urine Total 800 ml Drainage Total 110 ml # Voids 2 Wound: clean, intact Drains: none Respiratory: clear Abdomen: soft, non-tender, present bowel sounds Extremities: no tenderness Laboratory Tests Test 05/27/17 04:40 White Blood Count 12.8 K/UL (4.8-10.8) H Red Blood Count 4.15 M/UL (4.70-6.10) L Hemoglobin 12.7 G/DL (14.2-18.0) L Hematocrit 39.9 % (42.0-52.0) L Mean Corpuscular Volume 96 FL (80-99) Mean Corpuscular Hemoglobin 30.7 PG (27.0-31.0) Mean Corpuscular Hemoglobin Concent 31.9 G/DL (32.0-36.0) L Red Cell Distribution Width 13.4 % (11.6-14.8) Platelet Count 414 K/UL (150-450) Mean Platelet Volume 7.1 FL (6.5-10.1) Neutrophils (%) (Auto) 71.7 % (45.0-75.0) Lymphocytes (%) (Auto) 15.5 % (20.0-45.0) L Monocytes (%) (Auto) 6.7 % (1.0-10.0) Eosinophils (%) (Auto) 5.6 % (0.0-3.0) H Basophils (%) (Auto) 0.5 % (0.0-2.0) Sodium Level 141 mEQ/L (135-145) Potassium Level 4.6 mEQ/L (3.4-4.9) Chloride Level 101 mEQ/L (98-107) Carbon Dioxide Level 26 mEQ/L (20-30) Anion Gap 14 (5-15) Blood Urea Nitrogen 9 mg/dL (7-23) Creatinine 0.7 mg/dL (0.7-1.2) Estimat Glomerular Filtration Rate > 60 mL/min (>60) Glucose Level 101 mg/dL (74-106) Calcium Level 8.4 mg/dL (8.6-10.2) L Assessment Post-op Diagnosis perforated sigmoid colon with intra-abdominal abscess & small bowel obstruction Plan Additional Comments check CT scan FRED MILES May 27, 2017 14:56
[2017-05-27 16:00] VITALS: BP 145/83
[2017-05-27] MEDS ORDERED: Levofloxacin 500mg tab ORAL SCH (18:00)
--- NOTE | 2017-05-27 19:02 | Wound Nurse Progress Note ---
Wound RN Progress Note Wound Consult Saw this Pt today. Initial colostomy care teaching given. Supplies given as well as contact # to order in future. will f/u with Pt on Tuesday for more teaching and return demonstration. LIZABETH MARCANO RN May 27, 2017 19:02
[2017-05-27 20:00] VITALS: BP 137/80
[2017-05-28] VITALS: BP 132/80
[2017-05-28] MEDS ORDERED: KCl 10% 20 mEq/15ml liquid ORAL ONE (01:15)
[2017-05-28] MEDS: Hydromorphone 0.5mg/0.5ml inj IVP PRN ×4 (01:38→14:40)
[2017-05-28 04:00] VITALS: BP 127/81
[2017-05-28] MEDS: Heparin 5000 units/ml inj SUBQ SCH ×2 (05:08→14:42)
[2017-05-28 07:15] LABS: BASOPHILS % (AUTO) 0.9 % (0.0-2.0); EOSINOPHILS % (AUTO) 6.1 % (0.0-3.0); LYMPHOCYTES % (AUTO) 16.3 % (20.0-45.0); MEAN CORPUSCULAR HEMOGLOBIN 30.8 PG (27.0-31.0); MEAN CORPUSCULAR HGB CONC 32.4 G/DL (32.0-36.0); MEAN CORPUSCULAR VOLUME 95 FL (80-99); MEAN PLATELET VOLUME 6.6 FL (6.5-10.1); MONOCYTES % (AUTO) 6.3 % (1.0-10.0); NEUTROPHILS % (AUTO) 70.5 % (45.0-75.0); PLATELET COUNT 478 K/UL (150-450); RED BLOOD COUNT 4.53 M/UL (4.70-6.10); RED CELL DISTRIBUTION WIDTH 13.2 % (11.6-14.8); WHITE BLOOD COUNT 13.3 K/UL (4.8-10.8)
[2017-05-28 08:22] VITALS: BP 141/78
--- NOTE | 2017-05-28 08:45 | Progress Note ---
DATE: 05/27/2017 GENERAL MEDICINE PROGRESS NOTE SUBJECTIVE: The patient is tolerating diet. Pain has decreased. He is ambulating with less assist. OBJECTIVE: VITAL SIGNS: Blood pressure 153/95, heart rate 81, respiratory rate 20, and afebrile. ABDOMEN: Soft. Colostomy bag in place. Surgical site is clean and dry. LUNGS: Clear. CARDIAC: Regular. EXTREMITIES: No edema. LABORATORY AND DIAGNOSTIC DATA: CAT scan is performed today of the abdomen and pelvis, results pending. IMPRESSION: 1. Clinically improved, status post bowel resection with colostomy for ruptured diverticular abscess with secondary obstruction. 2. Postop ileus resolved. 3. Abdominal sepsis improved. 4. Hypertension with improving blood pressure parameters. PLAN: Continue antibiotics. Await results of CAT scan. Colostomy care. Discharge planning. Rico Ramos M.D. DR: Carrie JOB#: [id number] CC:
[2017-05-28] MEDS: Pericolace tab ORAL SCH (09:42)
[2017-05-28 11:41] VITALS: BP 126/83
[2017-05-28] MEDS ORDERED: LEVAQUIN500 MG ORAL (12:38)
[2017-05-28] MEDS ORDERED: METRONIDAZOLE500 MG ORAL (12:38)
[2017-05-28] MEDS ORDERED: MIRALAX17 G2 ORAL (12:39)
[2017-05-28 15:49] VITALS: BP 134/79
--- NOTE | 2017-05-30 08:38 | Diagnostic Imaging Report ---
Clinical Indication: Abdominal pain. Status post colonic resection Technique: Patient given oral contrast. IV administration nonionic contrast. Venous phase spiral acquisition obtained through the abdomen and pelvis. Multiplanar reconstructions were generated. Total dose length product 1001 mGycm. CTDIvol(s) 18 mGy. Dose reduction achieved using automated exposure control Comparison: Noncontrast study dated 05/18/2017 Findings: Interim abdominal surgery. Interim placement of descending colostomy. Interim Goddard procedure. There is some edema of the pericolonic fat. A focal small fluid pocket is seen in the left paracolic gutter. This does not demonstrate any rim enhancement. Edema is seen within the midline subumbilical incision. No other significant fluid collections are evident. A small amount of free air is seen anterior to the left hepatic lobe. There is a small bowel surgical staple line in the right lower quadrant. This is not evident previously. The small bowel is distended, although much less so than on the prior study. Distention is fairly diffuse,, although distal small bowel is smaller in caliber than the proximal small bowel. Nonetheless, contrast is seen in the terminal ileum, and a small amount of contrast has entered the colon, indicating absence of obstructive pathology. As previously, there is extensive colonic diverticulosis. The appendix is probably normal. It is less well-demonstrated than previously, however. The distal esophagus is unremarkable. The stomach is considerably less distended than previously. Again demonstrated is a right lobe liver cyst. Gallbladder, bile ducts, pancreas, spleen, right adrenal are unremarkable. Again demonstrated is a 2.5 cm left adrenal mass. On prior noncontrast CT, this demonstrates negative attenuation measurements, so this is consistent with a benign adenoma. The left kidney again demonstrates an interpolar region calyceal calculus. The right kidney demonstrates a 12 mm lower pole lesion which demonstrates fluid attenuation, consistent with a benign simple cyst. Prominent mesenteric root lymph nodes are again noted. Prominent retroperitoneal lymph nodes are also demonstrated. There is been interim development of moderate-sized bilateral pleural effusions. There is considerable compressive atelectasis at both lung bases. There is edema of the bilateral flanks. 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 Impression: Postsurgical changes,, as described, with sigmoid resection, distal descending colostomy, Goddard procedure, and apparent distal ileal resection and re\re anastomosis. There is a minimal fluid pocket in the left paracolic gutter. This most likely represents routine postoperative fluid but inflected collection cannot be completely ruled out. Small amount of edema is also seen in the pelvis, as well as along the midline incision, but no worrisome fluid collections are evident. Interim resolution of previously demonstrated small bowel obstruction. Residual distention of small bowel loops is noted, may reflect mild postoperative ileus, but is probably not significant as contrast is seen to traverse the entirety of the small bowel and into the cecum Small postoperative pneumoperitoneum noted. Borderline mesenteric root lymphadenopathy, likely reactive Colonic diverticulosis again demonstrated Interim development of moderate-sized bilateral pleural effusions. Resultant basilar compressive pulmonary parenchymal atelectasis Interim development of edema of the bilateral flank subcutaneous fat 2.5 cm left adrenal mass. Negative Hounsfield unit attenuation on previous noncontrast study is consistent with a benign lipid rich adenoma Nonobstructive left renal calyceal calculus again demonstrated Other finding as noted, including lumbar levoscoliotic deformity and degenerative changes, right renal cyst, right lobe liver cyst Image -- s reviewed in person with Dr. Betancur previously The CT scanner at [facility] is accredited by the [employer] and the scans are performed using protocols designed to limit radiation exposure to as low as reasonably achievable to attain images of sufficient resolution adequate for diagnostic evaluation.
--- NOTE | 2017-05-31 07:45 | Discharge Summary ---
Discharge Summary Hospital Course Date of Admission May 18, 2017 at 20:59 Date of Discharge May 28, 2017 at 16:12 Admitting Diagnosis upper gi bleed, possible obstruction HPI Edgardo Prado is a 61 year old male who was admitted on May 18, 2017 at 20:59 for Upper Gastrointestinal Bleed, Possible Obstruction Hospital Course dc summary #[id number] Discharge Medications Continued Medications: Levofloxacin* (Levaquin*) 500 Mg Tablet 500 MG ORAL DAILY for 5 Days, TAB Metronidazole* (Flagyl*) 500 Mg Tablet 500 MG ORAL THREE TIMES A DAY for 15 Days, #21 TAB 0 Refills Polyethylene Glycol 3350* (Miralax*) 17 Gm Powd.pack 17 GM ORAL DAILY, #30 PACKET Discharge Condition Upon Discharge: stable Discharge Disposition Patient was discharged to Home (01) Discharge Diagnoses: Discharge Instructions Discharge Instructions Special Instructions I have been assigned to complete a D/C Summary on this account. I was not involved in the patient management Debra Perdomo NP ([place]) May 31, 2017 07:45
--- NOTE | 2017-05-31 11:16 | Discharge Summary 2 SIG ---
DATE OF ADMISSION: 05/18/2017 DATE OF DISCHARGE: 05/28/2017 REASON FOR ADMISSION: This is a 61-year-old male with history of hypertension, presented with abdominal pain with sudden onset. The patient did not have any abdominal issues in the past nor did he had any abdominal surgery. Pain described as a cramping and sharp. He denied nausea or vomiting. He denied fever or chills. No alcohol abuse. Workup in the emergency room revealed the patient was afebrile. Blood pressure was 150/90. Pulse oximetry was stable on the room air. CT of the abdomen and pelvis revealed small-bowel obstruction. The patient started on IV fluids, empiric antibiotics, and pain management. Pain management was addressed. Surgery was consulted for acute abdomen. NG tube was inserted for the low suction. The patient was given intravenous H2 damon and the patient admitted to the hospital. WBC was 16.3. Glucose was 172, BUN 31, and creatinine 2.5. Urinalysis, no evidence of urinary tract infection. Chest x-ray is negative. ADMITTING DIAGNOSES: Include 1. Bowel obstruction. 2. Sepsis. 3. Acute renal failure. 4. Dehydration. 5. Hyperglycemia. HOSPITAL STAY: The patient admitted. The patient kept NPO. The patient started on IV fluids. Nephrology surgery consult followed. The patient subsequently undergone abdominal series were done and revealed high degree of bowel obstruction despite decompression and bowel rest. The patient undergone on 05/19/2017, exploratory laparotomy with resection of small bowel with anastomosis, drainage of intraabdominal abscess, colon resection, and colostomy. During surgery, he was intubated and extubated on 05/20/2017. Postoperative course in terms of surgery was as follows. The patient was initially NPO with bowel rest, intravenous fluids, and empiric antibiotics provided. Pain management was addressed. Colostomy care given. Wound care nurse seen and told patient colostomy care. The patient out of bed as tolerated. Supplemental oxygen and pulmonary toilet provided as needed. When the bowel sounds returned, G-tube was connected to intermittent suction. When the bowel sounds returned, the patient started to pass flatus, NG tube discontinued. The patient started on liquid diet, slowly progressed to regular diet as tolerated. The patient did have mild postoperative ileus, which resolved. Bowel regimen instituted. Pathology of small bowel revealed acute on chronic serositis and sigmoid colon resection pathology revealed segment of large bowel with diverticulitis, perforation and abscess formation with benign reactive lymph node. [employer] closely followed. According to merchandising representative, acute renal failure likely prerenal secondary to dehydration. Urine shows low sodium and high creatinine. The patient was hydrated initially. Neal catheter inserted to closely monitor intake and output. The patient initially has oliguria, which is improved. Neal catheter discontinued and eventually acute renal failure resolved. The highest BUN 62 and creatinine 4.1. Prior to discharge, renal parameters down to normal. To reiterate acute renal failure was likely secondary to dehydration as well as sepsis. CT of the abdomen also shows left adrenal mass, likely benign adenoma. He recommended further workup as an outpatient. Antihypertensive medications were titrated to keep blood pressure under control. The patient had a low magnesium, which was replaced and was stable. Protein supplements were provided for protein calorie malnutrition. Initially, when the patient was bicarbonate provided as needed for metabolic acidosis. The patient was stable for discharge home. Follow up with the surgeon and primary medical doctor. DISCHARGE DIAGNOSES: Include 1. Sepsis, secondary to intraabdominal abscess and bowel obstruction. 2. Perforated sigmoid colon with intra-abdominal abscess and small bowel obstruction. 3. Status post exploratory laparotomy with resection of small bowel anastomosis, drainage of intra-abdominal abscess, colon resection, and colostomy. 4. Postoperative ileus, resolved. 5. Acute renal failure, resolved. 6. Dehydration. 7. Acute respiratory failure, requiring intubation, status post extubation. 8. Metabolic acidosis, resolved. 9. Left adrenal mass, likely benign adenoma. 10. Hypertension. 11. Severe protein-calorie malnutrition. 12. Hypomagnesemia. 13. Metabolic acidosis. DISCHARGE MEDICATIONS: See medication reconciliation list. The patient given prescription for oral antibiotics to continue at home for additional seven days of Flagyl and five days of Levaquin. Colostomy care provided. The patient able to do colostomy care by himself. Rico Ramos M.D. I have been assigned to dictate discharge summary on this account and I was not involved in the patient's management. Debra Perdomo N.P. (vanchtein) DR: BRAYAN JOB#: [id number] CC:
== END 2017-05-28 16:12 | disposition home or self-care (01) | DRG 710 ==
LOC: EDBD 17:32 → EMR 19:16 → 2E 20:59 → EDBEDREQ 23:02 → ICU 05-19 22:36 → 2W 05-20 21:35 → 2E 05-22 13:57 → 4E 05-25 14:39
DX: A41.9 Sepsis, unspecified organism (principal); N17.0 Acute kidney failure with tubular necrosis; J96.00 Acute respiratory failure, unspecified whether with hypoxia or hypercapnia; E43 Unspecified severe protein-calorie malnutrition; E87.0 Hyperosmolality and hypernatremia; K56.5 Intestinal adhesions [bands] with obstruction (postinfection); E87.8 Other disorders of electrolyte and fluid balance, not elsewhere classified; K57.20 Diverticulitis of large intestine with perforation and abscess without bleeding; I10 Essential (primary) hypertension; E86.0 Dehydration; E86.1 Hypovolemia; E11.65 Type 2 diabetes mellitus with hyperglycemia; E83.42 Hypomagnesemia; D35.00 Benign neoplasm of unspecified adrenal gland; K56.7 Ileus, unspecified; Z68.29 Body mass index [BMI] 29.0-29.9, adult; I25.10 Atherosclerotic heart disease of native coronary artery without angina pectoris
CPT/HCPCS: 36415; 36600; 71010; 74176; 74177; 74250; 76775; 80048; 80053; 80076; 81001; 81003; 82330; 82550; 82553; 82570; 82803; 83036; 83605; 83690; 83735; 83880; 83935; 84100; 84300; 84443; 84484; 84550; 85007; 85025; 85610; 85730; 86850; 86900; 86901; 87070; 87075; 87181; 87205; 93005; 94002; 94003; 94150; 94664; 94760; C9399; J2250; J2405; J2710; J2765

== ENCOUNTER 2018-02-26 13:10 | Emergency (ER) | payer MEDICAID, OTHER ==
[~2018-02-26] VITALS: Ht 185.4 cm; Wt 90.7 kg
[~2018-02-26 13:10] MED LIST: LEVAQUIN500 MG ORAL; METRONIDAZOLE500 MG ORAL; MIRALAX17 G2 ORAL; NKM
[2018-02-26 13:13] VITALS: BP 122/76
[2018-02-26] MEDS ORDERED: Morphine Sulfate 4mg/ml Inj IVP ONE ×2 (13:15→14:15)
[2018-02-26] MEDS ORDERED: Mylanta II UD 30ml ORAL ONE (13:15)
[2018-02-26] MEDS ORDERED: Nitroglycerin 2% oint pkt TOPIC ONE (13:15)
--- NOTE | 2018-02-26 13:27 | Emergency Room Report ---
History of Present Illness General Chief Complaint: Chest Pain Source: Patient, EMS Present Illness HPI The patient presents with chest pain. He states his substernal left sided radius F inured to his shoulders and was 8/10. He states she's never had this pain before. He was watching television when he began. He was planning on going out to [place] for the [employer] car races. The patient's recently had problems with GI surgery. He had a CT scan done 2 days ago that was "normal". There is no pain that was associated with that he is hoping that this was gas pain. The patient denies any fever, vomiting, nausea, diaphoresis. He did feel some dyspnea when he had the chest pain. No anxiety, though he felt quite ill with the pain. Admission 2016 for abdominal pain. D/C dx: 1. Sepsis, secondary to intraabdominal abscess and bowel obstruction. 2. Perforated sigmoid colon with intra-abdominal abscess and small bowel obstruction. 3. Status post exploratory laparotomy with resection of small bowel anastomosis, drainage of intra-abdominal abscess, colon resection, and colostomy. 4. Postoperative ileus, resolved. 5. Acute renal failure, resolved. ( due to dehydration and sepsis) 6. Dehydration. 7. Acute respiratory failure, requiring intubation, status post extubation. 8. Metabolic acidosis, resolved. 9. Left adrenal mass, likely benign adenoma. 10. Hypertension. 11. Severe protein-calorie malnutrition. 12. Hypomagnesemia. 13. Metabolic acidosis. Allergies: Coded Allergies: No Known Allergies (Unverified , 05/18/17) Patient History Past Medical History: see triage record, old chart reviewed Social History: Denies: smoking, alcohol use, drug use Social History Narrative from home Reviewed Nursing Documentation: PMH: Agreed; PSxH: Agreed Nursing Documentation-PMH Hx Cardiac Problems: No Hx Hypertension: No Hx Pacemaker: No Hx Asthma: No Hx COPD: No Hx Diabetes: No Hx Cancer: No Hx Gastrointestinal Problems: No Hx Neurological Problems: No Hx Cerebrovascular Accident: No Hx Seizures: No Review of Systems All Other Systems: negative except mentioned in HPI Physical Exam Vital Signs Date Time Temp Pulse Resp B/P (MAP) Pulse Ox O2 Delivery O2 Flow Rate FiO2 02/26/18 13:03 97.6 90 20 161/102 97 Room Air 97.5 Sp02 EP Interpretation: reviewed, normal General Appearance: no apparent distress, GCS 15, other - plethoric Head: normocephalic Eyes: bilateral eye normal inspection, bilateral eye PERRL ENT: moist mucus membranes Neck: supple Respiratory: chest non-tender, lungs clear, normal breath sounds Cardiovascular #1: regular rate, rhythm Cardiovascular #2: 2+ radial (R) Gastrointestinal: normal bowel sounds, non tender, no mass, no guarding, no rebound, other - colostomy L Lower abdomen - minimal distension Genitourinary: no CVA tenderness Musculoskeletal: back normal, gait/station normal, normal range of motion Neurologic: alert, oriented x3, grossly normal Psychiatric: mood/affect normal Skin: normal inspection, warm/dry Medical Decision Making Diagnostic Impression: Primary Impression: Chest pain Qualified Codes: R07.9 - Chest pain, unspecified Additional Impressions: Atelectasis of right lung Pleural effusion S/P Colectomy & Colostomy ER Course Patient presents with left-sided chest pain. Differential includes acute myocardial infarction, acute coronary syndrome, pleurisy, costochondritis, reflux with esophageal spasm amongst others. Evaluation will be with EKG, chest x-ray and labs. The patient has a complex GI history with the colostomy after small bowel obstruction and a complicated course last year. She claims that CT scan was normal on Tuesday The patient was treated with aspirin and nitrates in the field. We will be treating him with morphine here to control the pain. EKG showed no injury. Chest x-ray shows right-sided effusion and atelectasis which is new from 2017. Labs are significant for elevated white count and normal H&H. Initial troponin is 0. Patient initially had some relief after the initial morphine but the pain started to come back. Morphine was repeated. The pain is controlled at this time. The case was presented to Dr. Friedman who accepts the patient in transfer. The patient is serious but stable for transfer to [facility]. Laboratory Tests Test 02/26/18 13:30 02/26/18 14:35 White Blood Count 11.5 K/UL (4.8-10.8) H Red Blood Count 4.79 M/UL (4.70-6.10) Hemoglobin 13.7 G/DL (14.2-18.0) L Hematocrit 41.6 % (42.0-52.0) L Mean Corpuscular Volume 87 FL (80-99) Mean Corpuscular Hemoglobin 28.5 PG (27.0-31.0) Mean Corpuscular Hemoglobin Concent 32.9 G/DL (32.0-36.0) Red Cell Distribution Width 13.4 % (11.6-14.8) Platelet Count 355 K/UL (150-450) Mean Platelet Volume 6.7 FL (6.5-10.1) Neutrophils (%) (Auto) 75.2 % (45.0-75.0) H Lymphocytes (%) (Auto) 11.8 % (20.0-45.0) L Monocytes (%) (Auto) 6.7 % (1.0-10.0) Eosinophils (%) (Auto) 5.6 % (0.0-3.0) H Basophils (%) (Auto) 0.8 % (0.0-2.0) Prothrombin Time 10.5 SEC (9.30-11.50) Prothrombin Time INR 1.0 (0.9-1.1) PTT 36 SEC (23-33) H Sodium Level 139 MMOL/L (136-145) Potassium Level 4.1 MMOL/L (3.5-5.1) Chloride Level 104 MMOL/L (98-107) Carbon Dioxide Level 26 MMOL/L (21-32) Anion Gap 9 mmol/L (5-15) Blood Urea Nitrogen 20 mg/dL (7-18) H Creatinine 1.0 MG/DL (0.55-1.30) Estimate Glomerular Filtration Rate > 60 mL/min (>60) Glucose Level 113 MG/DL (74-106) H Calcium Level 8.9 MG/DL (8.5-10.1) Total Bilirubin 0.3 MG/DL (0.2-1.0) Aspartate Amino Transferase (AST) 16 U/L (15-37) Alanine Aminotransferase (ALT) 15 U/L (12-78) Alkaline Phosphatase 137 U/L (46-116) H Total Creatine Kinase 173 U/L (26-308) Troponin I 0.000 ng/mL (0.000-0.056) Pro-B-Type Natriuretic Peptide 127 pg/mL (0-125) H Total Protein 6.7 G/DL (6.4-8.2) Albumin 2.9 G/DL (3.4-5.0) L Globulin 3.8 g/dL Albumin/Globulin Ratio 0.8 (1.0-2.7) L Lactic Acid Level 1.30 mmol/L (0.66-2.22) EKG Diagnostic Results Rate: normal Rhythm: NSR ST Segments: no acute changes Rhythm Strip Diag. Results EP Interpretation: yes Rhythm: NSR, no PVC's, no ectopy Chest X-Ray Diagnostic Results Chest X-Ray Diagnostic Results : Chest X-Ray Ordered: Yes # of Views/Limited/Complete: 1 View Indication: Chest Pain Interpretation: no pneumothorax, other Impression: Other Electronically Signed by: Electronically signed by Rico Crabtree MD Last Vital Signs Date Time Temp Pulse Resp B/P (MAP) Pulse Ox O2 Delivery O2 Flow Rate FiO2 02/26/18 16:38 97.6 66 24 147/85 94 Nasal Cannula 4.0 Status: improved Disposition: [facility] Condition: Serious - Stable for transfer Rico Crabtree M.D. Feb 26, 2018 13:27
[2018-02-26 13:53] LABS: BASOPHILS % (AUTO) 0.8 % (0.0-2.0); EOSINOPHILS % (AUTO) 5.6 % (0.0-3.0); HEMATOCRIT 41.6 % (42.0-52.0); HEMOGLOBIN 13.7 G/DL (14.2-18.0); LYMPHOCYTES % (AUTO) 11.8 % (20.0-45.0); MEAN CORPUSCULAR VOLUME 87 FL (80-99); MONOCYTES % (AUTO) 6.7 % (1.0-10.0); NEUTROPHILS % (AUTO) 75.2 % (45.0-75.0); PLATELET COUNT 355 K/UL (150-450); RED BLOOD COUNT 4.79 M/UL (4.70-6.10); RED CELL DISTRIBUTION WIDTH 13.4 % (11.6-14.8); WHITE BLOOD COUNT 11.5 K/UL (4.8-10.8)
[2018-02-26 14:07] LABS: ANION GAP 9 mmol/L (5-15); BLOOD UREA NITROGEN 20 mg/dL (7-18); CALCIUM 8.9 MG/DL (8.5-10.1); CARBON DIOXIDE 26 MMOL/L (21-32); CHLORIDE 104 MMOL/L (98-107); POTASSIUM 4.1 MMOL/L (3.5-5.1); SODIUM 139 MMOL/L (136-145)
[2018-02-26 14:18] LABS: ALANINE AMINOTRANSFERASE 15 U/L (12-78); ALBUMIN 2.9 G/DL (3.4-5.0); ALBUMIN/GLOBULIN RATIO 0.8 (1.0-2.7); ALKALINE PHOSPHATASE 137 U/L (46-116); ASPARTATE AMINO TRANSFERASE 16 U/L (15-37); BILIRUBIN,TOTAL 0.3 MG/DL (0.2-1.0); CREATINE KINASE 173 U/L (26-308)
[2018-02-26 14:44] VITALS: BP 128/81
[2018-02-26 15:28] VITALS: BP 147/85
[2018-02-26 16:38] VITALS: BP 147/85
--- NOTE | 2018-02-27 08:30 | Diagnostic Imaging Report ---
Indication: Chest pain Technique: One view of the chest Comparison: 05/21/2017 Findings: Interim development of a large right pleural effusion. There is compressive atelectasis at the right lung base is resolved. Underlying parenchymal consolidation also possible. The left lung pleural space, right upper lung are grossly clear. The heart is upper limits of normal in size. There is thoracic scoliotic deformity Impression: Large right pleural effusion and underlying basilar pulmonary parenchymal atelectasis This agrees with the preliminary interpretation provided by the emergency room physician
--- NOTE | 2018-02-27 21:23 | Cardiology Report ---
APPROVED REPORT EKG Measurement Heart [id number] Normal sinus rhythm with sinus arrhythmia Normal ECG
== END 2018-02-26 16:38 | disposition short-term general hospital (02) ==
LOC: EDBD 13:10 → EMR 13:34
DX: R07.9 Chest pain, unspecified (principal); J98.11 Atelectasis; J90 Pleural effusion, not elsewhere classified; Z93.3 Colostomy status
CPT/HCPCS: 36415; 71045; 80053; 82550; 83605; 83880; 84484; 85025; 85610; 85730; 87040; 93005; 96374; 96375; 99285; J1956; J2270; S0028